=== PATIENT | female | born 1965 | race Caucasian/White ===

== ENCOUNTER → 2016-02-22 | Outpatient (CLI) | payer BC, OTHER ==
[2016-02-22 11:23] LABS: CH 32.6; HCT 41.3 % (34.0-46.0); HDW 2.55; HGB 14.1 gm/dL (11.4-16.0); MCHC 34.2 g/dL (31.0-37.0); MCV 96.6 fL (80.0-100.0); Mean Platelet Volume 6.3; RBC 4.27 m/uL (3.80-5.40); RDW 13.6 % (11.5-15.5); WBC 7.1 k/uL (3.8-10.6)
[2016-02-22 11:29] LABS: Appearance,Urine Clear (Clear); Bilirubin,Urine Negative (Negative); Glucose,Urine (UA) Negative (Negative); Ketones,Urine Negative (Negative); Leukocyte Esterase,Urine Negative (Negative); Mucus,Urine Rare /hpf; Nitrite,Urine Negative (Negative); PH, Urine 5.5 (5.0-8.0); Particle Count 2768; Protein,Urine Negative (Negative); RBC,Urine <1 /hpf (0-5); Specific Gravity,Urine 1.021 (1.001-1.035); Squamous Epithelial Cell,Urine 9 /hpf (0-4); UA Billing (MACRO vs. MICRO) MICRO; Urobilinogen,Urine <2.0 mg/dL (<2.0); WBC,Urine <1 /hpf (0-5)
[2016-02-22 11:37] LABS: ALT 37 U/L (9-52); AST 23 U/L (14-36); Alkaline Phosphatase 95 U/L (38-126); Anion Gap 15 mmol/L; Blood Urea Nitrogen 20 mg/dL (7-17); Calcium 9.5 mg/dL (8.4-10.2); Carbon Dioxide 24 mmol/L (22-30); Chloride 106 mmol/L (98-107); Glucose 109 mg/dL (74-99); Non-African American GFR(MDRD) >60 (>60 ml/min/1.73 sqM); Potassium 4.6 mmol/L (3.5-5.1); Sodium 145 mmol/L (137-145); Total Bilirubin 0.5 mg/dL (0.2-1.3); Total Protein 7.6 g/dL (6.3-8.2)
--- NOTE | 2016-02-22 13:04 | CT ---
EXAMINATION TYPE: CT abdomen pelvis w con DATE OF EXAM: 02/22/2016 12:54 PM COMPARISON: NONE INDICATION: Patient having severe stomach pain, complained that IV contrast gave her severe heartburn DLP: 721.9 mGycm, Automated exposure control for dose reduction was used. CONTRAST: 100 mL of Omnipaque 300. Study performed with Oral Contrast TECHNIQUE: Axial images were obtained from above the diaphragm to the pubic rami in the axial plane a t 5 mm thick sections. Reconstructed images are reviewed on the computer in the coronal plane. FINDINGS: Limited CT sections are obtained the lung bases. The lung bases are clear. Bilateral breast prosthe ses are present. CT ABDOMEN: Liver: Normal Spleen: Normal Pancreas: Normal Adrenal glands: The adrenal glands are normal. Gallbladder: Normal Kidneys: No masses are evident. No hydronephrosis is present. No cysts are present. Delayed images were obtained through the kidneys, which remain unremarkable. Aorta: Vascular calcification is within the aorta. Inferior vena cava: Normal. CT PELVIS: Loops of bowel within the abdomen and pelvis are normal. There are loops of bowel which are incom pletely distended or lack oral contrast limiting their evaluation. Appendix: Normal as visualized. Urinary bladder: Normal. Genitourinary structures: Uterus is atrophic. Left ovary may contain the 1.5 cm involuting cyst. Left adnexal regions unremarkable. Osseous structures: No suspicious lytic or sclerotic lesions. Pedicle screws are within the lower lum bar spine. IMPRESSIONS: 1. No acute abdominal process.
== END | disposition home or self-care (01) ==
LOC: RADCTMAIN 10:45
PROVIDERS: ATTEND Surgery
DX: R10.84 Generalized abdominal pain (principal)
CPT/HCPCS: 80053; 84443; 85027; 81001; 87086; 74177; 36415; Q9967

== ENCOUNTER → 2016-03-01 | Outpatient (CLI) | payer BC, OTHER ==
--- NOTE | 2016-03-01 20:50 | WWHP ---
DATE OF DICTATION: 03/01/2016 CHIEF COMPLAINT: The patient is here for her routine gynecologic exam. HISTORY OF PRESENT ILLNESS: This is a 50-year-old G5, P4-0-1-4 with an LMP of approximately 1999. The patient is status post PETRA for benign reasons. The patient states it has been about 6 years since her last pelvic exam, and previously saw Dr. Schwab for these. She has been seeing Dr. Amador regarding GI problems. She developed rectal bleeding in 08/04. She had a CT scan on 02/22/16 which showed a 1.5 cm left ovarian cyst. The CT scan of the abdomen and pelvis was otherwise unremarkable. She states she had some slight discomfort in the pelvis a couple of months ago, but this resolved. She continues to have GI problems, including diarrhea alternating with constipation and occasional blood per rectum. She is scheduled for colonoscopy on 03/16/16. She thinks she may have gone through menopausal change about 1 to 2 years ago when she did have some emotional changes and hot flashes, but this did resolve. PAST MEDICAL HISTORY: 1. Chronic neck and back pain. 2. History of cardiac arrhythmia. 3. She is status post cardiac ablation. MEDICATIONS: None. ALLERGIES: NO KNOWN DRUG ALLERGIES. PAST SURGICAL HISTORY: 1. Cardiac ablation in 1999. 2. Hysterectomy about 1999. 3. section in 1994. 4. Back fusion surgery in 2013. 5. Neck fusion surgery in 2014. 6. Colonoscopy in 2005. 7. Bilateral breast implants in 1999. PAST OB HISTORY: Three vaginal deliveries and one section for breech. She also had one spontaneous . 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 She did have a history of endometriosis and underwent a PETRA in 1999 for this. SOCIAL HISTORY: She denies tobacco and drug use and has about 12 alcoholic drinks per year. 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 FAMILY HISTORY: Mother had endometriosis and had colon cancer. Sister and brother have ulcerative colitis. Grandmother has diabetes. REVIEW OF SYSTEMS: She denies respiratory or cardiac problems. GI: She has had alternating constipation and diarrhea as well as blood per rectum as in the HPI. PHYSICAL EXAM: Blood pressure 127/79. Height 5 feet 3 inches. Weight 178 pounds. Temperature 96.1, pulse 73. This is a well-developed, well-nourished white female who is alert and oriented x3, in no acute distress. HEENT is within normal limits. NECK: Supple without mass or thyromegaly. CHEST AND LUNGS: Clear to auscultation. HEART: Regular rate and rhythm. Breasts are without mass or discharge and are consistent with bilateral breast implants. Axillary exam is negative for adenopathy. BACK: Negative for CVA tenderness. ABDOMEN: Soft, nontender, without palpable masses. PELVIC EXAM: Normal external genitalia. Vagina appears normal and well estrogenized. There is no evidence of prolapse. Bimanual exam is negative for mass or tenderness. Rectovaginal exam is negative for mass or tenderness and is negative for occult blood. EXTREMITIES: Nontender. IMPRESSION: 1. A 50-year-old female, status post PETRA for benign reasons. 2. Normal gynecologic exam. 3. Incidental finding of a left ovarian cyst measuring 1.[address] scan; this was described as an involuting cyst. This may be considered a normal physiologic cyst if she is premenopausal. 4. Gastrointestinal problems, including blood per rectum; currently undergoing workup for this. PLAN: 1. Pap smears have been discontinued. 2. Self breast examination was discussed. 3. Screening mammogram is scheduled for later this month, and a slip was given to the patient for this. 4. FSH will be drawn today. If this is consistent with menopause, consider ultrasound to recheck the ovarian cyst. If it is consistent with pre-menopause, no further workup on this would be necessary. 5. I have discussed the ovarian cyst with the patient and I have reassured the patient that it is likely not to be of significant concern. I have discussed the workup outlined above. 6. She will return in one year and p.r.n.
== END | disposition home or self-care (01) ==
LOC: WWCWWP 10:10
PROVIDERS: ATTEND Obstetrics & Gynecology
DX: N83.292 Other ovarian cyst, left side (principal)
CPT/HCPCS: 36415; 83001

== ENCOUNTER → 2016-03-03 | Outpatient (CLI) | payer BC, OTHER ==
--- NOTE | 2016-03-08 09:19 | MM ---
Reason for exam: screening (asymptomatic). Last mammogram was performed 5 years and 9 months ago. History: Retro-pectoral saline implants in both breasts, 1997. Took hormonal contraceptives for 2 years. Physical Findings: A clinical breast exam by your physician is recommended on an annual basis and results should be correlated with mammographic findings. MG Screening Mammo Implant/CAD Bilateral CC, MLO, and ID view(s) were taken. Prior study comparison: June 07, 2010, CAD bilateral diagnostic mammogram. May 22, 2007, bilateral diagnostic digital mammog. The breast tissue is extremely dense which could obscure a lesion on mammography. Bilateral breast implants. No significant changes when compared with prior studies. ASSESSMENT: Benign, BI-RAD 2 RECOMMENDATION: Routine screening mammogram of both breasts in 1 year.
== END | disposition home or self-care (01) ==
LOC: RADMAMWWP 12:41
PROVIDERS: ATTEND Surgery
DX: Z12.31 Encounter for screening mammogram for malignant neoplasm of breast (principal)

== ENCOUNTER → 2016-05-15 | Outpatient (CLI) | payer BC, OTHER ==
[2016-05-15 10:38] LABS: CH 33.4; CHCM 34.5; HCT 39.8 % (34.0-46.0); HDW 2.64; HGB 13.4 gm/dL (11.4-16.0); MCH 32.7 pg (25.0-35.0); MCHC 33.6 g/dL (31.0-37.0); MCV 97.5 fL (80.0-100.0); Mean Platelet Volume 7.6; RBC 4.09 m/uL (3.80-5.40); WBC 7.1 k/uL (3.8-10.6)
[2016-05-15 13:34] LABS: Erythrocyte Sedimentation Rate 5 mm/hr (0-20)
== END | disposition home or self-care (01) ==
LOC: LABWHC1 10:02
PROVIDERS: ATTEND Surgery
DX: K52.9 Noninfective gastroenteritis and colitis, unspecified (principal)
CPT/HCPCS: 36415; 85027; 85652; 86140

== ENCOUNTER → 2018-04-27 | Outpatient (CLI) | payer BC, OTHER ==
[2018-04-27 16:38] LABS: Albumin 4.4 g/dL (3.80-4.90); Albumin/Globulin Ratio 1.69 (1.60-3.17); Anion Gap 6.9 mmol/L (4.00-12.00); Calcium 9.9 mg/dL (8.7-10.3); Carbon Dioxide 25.1 mmol/L (21.6-31.8); Globulin 2.6 g/dL (1.6-3.3); LDL Cholesterol,Calculated 128.8 mg/dL (0.0-131.0); Potassium 4.9 mmol/L (3.5-5.5); Total Bilirubin 0.5 mg/dL (0.3-1.2); VLDL Calculation 19.2 mg/dL (5.00-40.00)
[2018-04-27 17:39] LABS: Hemoglobin A1C 5.2 % (4.0-6.0)
== END | disposition home or self-care (01) ==
LOC: LABWHC1 10:54
PROVIDERS: ATTEND Internal Medicine Endocrinology, Diabetes & Metabolism
DX: R73.03 Prediabetes (principal)
CPT/HCPCS: 36415; 80053; 80061; 83036; 84443

== ENCOUNTER → 2018-08-01 | Outpatient (CLI) | payer BC, OTHER ==
--- NOTE | 2018-08-02 07:54 | XR ---
EXAMINATION TYPE: XR cervical spine comp DATE OF EXAM: 08/01/2018 TECHNIQUE: Frontal, lateral, oblique, swimmers, and open mouth view of the cervical spine are obtaine d. HISTORY: [id number] CERVICALGIA,CDD COMPARISON: 11/17/2014 FINDINGS: The cervical spine is visualized in its entirety from C1 thru the top of T1 level, withou t evidence of acute fracture. Anterior cervical fusion device spans the C4-6 vertebral bodies. Very m inimal retrolisthesis of C3 on C4 is seen (2 mm). This is new from the prior of 11/17/2014 The pre-annalise tebral soft tissue appears within normal limits. The C1-C2 articulation is within normal limits on t he open mouth view. The oblique images are within normal limits. IMPRESSION: No acute fracture of the cervical spine. Postsurgical changes of the fourth through C6 w ith new very minimal retrolisthesis of C3 on C4 in comparison to the prior 2014.
== END | disposition home or self-care (01) ==
LOC: RADXRYALE 15:59
PROVIDERS: ATTEND Physician Assistant Medical
DX: M43.12 Spondylolisthesis, cervical region (principal); Z98.890 Other specified postprocedural states
CPT/HCPCS: 72050

== ENCOUNTER → 2019-01-01 | Outpatient (CLI) | payer BC, OTHER ==
[2019-01-01 08:57] VITALS: BP 133/89; PULSE 90; RESP 16; TEMP 98.1; BMI 29.2
--- NOTE | 2019-01-01 09:59 | P.HPOB ---
History of Present Illness H&P Date: 01/01/19 Chief Complaint: The patient is here for her routine gynecologic exam and ma mmogram. This is a 53-year-old 014 with an LMP of 1999. The patient is status post [facility] for benign reasons. The patient noticed a small axillary lump on the right side about 1 month ago. She states she no longer feels the lump, however, she has some right-sided breast tenderness near the axilla. She does have breast silicone implants Review of Systems The patient has lost about 13 pounds over the last 2 years. She denies respiratory or cardiac problems. GI: Occasional loose stool and constipation which she attributes to her ulcerative colitis. Past Medical History Past Medical History: Asthma Additional Past Medical History / Comment(s): back pain WHICH STARTED IN 2009. HX. HEART ARRYTHMIA (TACHY) NOW UNDER CONTROLL SINCE CARDIAC ABLATION. Ulcerative colitis and sgl-abmanhhn-cjif controlled. 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 History of endometriosis. History of Any Multi-Drug Resistant Organisms: None Reported Past Surgical History: Back Surgery, Breast Surgery, Cardiac Ablation, Section, Hysterectomy, Orthopedic Surgery Additional Past Surgical History / Comment(s): R KNEE ARTHROSCOPY. LUMBAR, 401, CERVICAL 2014. PETRA 1999.Colonoscopy 2017(2nd). Bilateral silicone breast impla nts 1999. 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 - Past Family History Father Family Medical History: No Reported History Mother Family Medical History: Cancer, Mitral Valve Prolapse (MVP) Additional Family Medical History / Comment(s): Colon cancer. Osteoporosis. Endometriosis. Brother(s) Additional Family Medical History / Comment(s): Ulcerative colitis. Sister(s) Additional Family Medical History / Comment(s): Ulcerative colitis. Medications and Allergies Home Medications Medication Instructions Recorded Confirmed Type Cholecalciferol [Vitamin D3] 5,000 unit PO DAILY 04/14/15 01/01/19 History Biotin 300 mcg PO DAILY 01/01/19 01/01/19 History Pyridoxine [Vitamin B-6] 50 mg PO ONCE 01/01/19 01/01/19 History Allergies Allergy/AdvReac Type Severity Reaction Status Date / Time hepatitis B virus vaccine Allergy Rash/Hives Verified 01/01/19 08:57 [Hepatitis B Virus Vaccine] influenza A (H1N1) virus Allergy Rash/Hives Verified 01/01/19 08:57 vaccine m- [From influenza A (H1N1)] adhesive AdvReac skin turns Verified 01/01/19 08:57 red Exam Vital Signs Temp Pulse Resp BP Pulse Ox 01/01/19 08:50 98.1 F 90 16 133/89 100 Intake and Output 12/31/18 01/01/19 01/01/19 22:59 06:59 14:59 Other: Weight 74.843 kg Height 5 feet 3 inches, weight 165 pounds, BMI 29.2. This is a well-developed well-nourished white female who is alert and oriented times 3 in no acute distress. HEENT: Within normal limits. NECK: Supple without mass or thyromegaly. CHEST AND LUNGS: Clear to auscultation. HEART: Regular rate and rhythm. BREASTS: Are without mass or discharge. Breasts are consistent with bilateral implants. There is mild right breast tenderness at the lateral aspect from 9:00 to 12:00. AXILLARY EXAM: Negative for adenopathy. BACK: Negative for CVA tenderness. ABDOMEN: Soft, nontender, without palpable masses. PELVIC EXAM: External genitalia appears normal. Vagina appears normal. There is no evidence of prolapse. Bimanual examination is negative for mass . There is mild to moderate right adnexal tenderness with deep bimanual palpation. There are no palpable masses. RECTAL EXAM: Rectovaginal exam is negative for mass or tenderness and is negative for occult blood. EXTREMITIES: Nontender. IMPRESSION: 1. 53-year-old female who is status post PETRA for benign reasons with mild to moderate right adnexal pelvic tenderness on bimanual examination. 2. Probable perimenopause. 3. One-month history of right breast tenderness. PLAN: 1. Pap smears have been discontinued. 2. Self breast awareness was discussed with the patient. 3. Diagnostic bilateral mammogram will be done today. 4. I have recommended a pelvic ultrasound because of the right adnexal pelvic tenderness. The order slip was given to the patient for this. 5. Osteoporosis prevention was discussed. I have stressed the importance of adequate calcium, vitamin D and regular exercise. Recommended amounts of calcium and vitamin D were also discussed. Because of her mother's history of osteoporosis we will plan on doing bone density testing at age 57 or after she has completed the menopausal change. 6. She states she is due for a colonoscopy since she was told to do one approximately 2 years after her one done in 2017. She will look into doing this and we'll discuss this with Dr. Price's office. 7. She was advised to return in one year for her annual well woman exam.
--- NOTE | 2019-01-01 11:37 | MM ---
Reason for exam: additional evaluation requested from prior study. Last mammogram was performed 2 years and 10 months ago. History: Retro-pectoral saline implants in both breasts, 1997. Took hormonal contraceptives for 2 years. Physical Findings: Dr. Hodges did breast exam. MG Diag Mamm Implants DARLENE w CAD Bilateral CC, MLO, and ID view(s) were taken. Prior study comparison: March 03, 2016, bilateral MG screening mammo implant/CAD. June 07, 2010, CAD bilateral diagnostic mammogram. The breast tissue is heterogeneously dense. This may lower the sensitivity of mammography. Bilateral retropectoral saline implants. 4cm central slightly lateral asymmetry is stable from 2017. These results were verbally communicated with the patient and result sheet given to the patient on 01/01/19. ASSESSMENT: Incomplete: need additional imaging evaluation, BI-RAD 0 RECOMMENDATION: Ultrasound of the right breast. (lateral)
--- NOTE | 2019-01-01 11:39 | USB ---
Reason for exam: additional evaluation requested from abnormal screening. History: Retro-pectoral saline implants in both breasts, 1997. Took hormonal contraceptives for 2 years. US Breast Limited RT Right limited breast ultrasound including focal area of concern, retroareolar and axilla demonstrates a 0.5 x 0.5 x 0.3cm oval, cystic lesion at 12 o'clock. Dense tissue corresponds to the mammographic asymmetry. These results were verbally communicated with the patient and result sheet given to the patient on 01/01/19. ASSESSMENT: Benign, BI-RAD 2 RECOMMENDATION: Routine screening mammogram of both breasts in 1 year.
== END | disposition home or self-care (01) ==
LOC: WWCWWP 08:45
PROVIDERS: ATTEND Obstetrics & Gynecology
DX: R92.8 Other abnormal and inconclusive findings on diagnostic imaging of breast (principal); N64.4 Mastodynia
CPT/HCPCS: 77066

== ENCOUNTER → 2019-01-10 | Outpatient (CLI) | payer BC, OTHER ==
--- NOTE | 2019-01-10 13:16 | US ---
EXAMINATION TYPE: US pelvis complete transvag DATE OF EXAM: 01/10/2019 COMPARISON: NONE CLINICAL HISTORY: R68.89 pelvic pain. RLQ pain during pelvic exam, hysterectomy - partial TECHNIQUE: Transvaginal (TV) and Transabdominal (TA) . Transabdominal sonographic images of the pel vis were acquired. Transvaginal sonographic images were medically necessary to better assess the fol lowing anatomy: ovaries Date of LMP: unknown EXAM MEASUREMENTS: Uterus: Surgically absent Endometrial Stripe: Surgically absent Right Ovary: 2.3 x 1.0 x 2.4 cm Left Ovary: 3.9 x 2.2 x 3.2cm 1. Uterus: Surgically absent, vaginal cuff = 1.2cm 2. Endometrium: Surgically absent 3. Right Ovary: dominant follicle = 1.3cm 4. Left Ovary: cystic area = 2.8 x 1.7 x 2.3cm 5. Bilateral Adnexa: appears wnl IMPRESSION: Bilateral ovarian cysts noted which may be functional in nature. Consider follow-up study in 6 weeks. The uterus is surgically absent.
== END | disposition home or self-care (01) ==
LOC: RADUSWWP 12:08
PROVIDERS: ATTEND Obstetrics & Gynecology
DX: N83.202 Unspecified ovarian cyst, left side (principal); N83.201 Unspecified ovarian cyst, right side; Z90.710 Acquired absence of both cervix and uterus
CPT/HCPCS: 76830; 76856

== ENCOUNTER → 2019-07-18 | Outpatient (CLI) | payer BC, OTHER | END | disposition home or self-care (01) | LOC: LABWHC1 12:47 | PROVIDERS: ATTEND Internal Medicine Clinical Cardiac Electrophysiology | DX: Z11.59 Encounter for screening for other viral diseases (principal) ==

== ENCOUNTER 2019-07-22 07:22 | Day surgery (SDC) | payer BC, OTHER ==
[2019-07-21 08:44] VITALS: BMI 29.5
[~2019-07-22 07:22] MED LIST: LACTATED RINGERS 1,000 ML IV SCH; SODIUM CHLORIDE 0.9% 1,000 ML IV SCH
[2019-07-22 07:52] LABS: Basophils # (A) 0.1 k/uL (0-0.2); Basophils % (A) 1 %; Eosinophils # (A) 0.4 k/uL (0-0.7); Eosinophils % (A) 4 %; HCT 44.1 % (34.0-46.0); HGB 14.7 gm/dL (11.4-16.0); Lymphocytes # (A) 2.1 k/uL (1.0-4.8); Lymphocytes % (A) 24 %; MCH 33.6 pg (25.0-35.0); MCHC 33.4 g/dL (31.0-37.0); MCV 100.5 fL (80.0-100.0); Mean Platelet Volume 7.4; Monocytes # (A) 0.5 k/uL (0-1.0); Monocytes % (A) 5 %; Neutrophils # (A) 5.7 k/uL (1.3-7.7); Neutrophils % (A) 64 %; Platelet Count 338 k/uL (150-450); RBC 4.38 m/uL (3.80-5.40); RDW 12.8 % (11.5-15.5); WBC 8.9 k/uL (3.8-10.6)
[2019-07-22 08:05] LABS: African American GFR (CKD) >90 (>60 ml/min/1.73 sqM); Anion Gap 7 mmol/L; Blood Urea Nitrogen 17 mg/dL (7-17); Calcium 9.4 mg/dL (8.4-10.2); Carbon Dioxide 24 mmol/L (22-30); Chloride 106 mmol/L (98-107); Glucose 99 mg/dL (74-99); Non-African American GFR(CKD) >90 (>60 ml/min/1.73 sqM); Potassium 4.2 mmol/L (3.5-5.1); Sodium 137 mmol/L (137-145)
[2019-07-22] MEDS ORDERED: fentaNYL (PF) 50 MCG/ML 2 ML AMP ONE (08:35)
[2019-07-22] MEDS ORDERED: ISOPROTERENOL 250 MCG/1.25 ML SYR IV ONE (08:35)
[2019-07-22] MEDS ORDERED: PROPOFOL 10 MG/ML 20 ML VIAL IV ONE (08:35)
[2019-07-22] MEDS ORDERED: MIDAZOLAM 2 MG/2 ML VIAL ONE (08:35)
[2019-07-22] MEDS ORDERED: LIDOCAINE 1% INJ 10MG/ML (20 ML MDV) SQ ONE (09:24)
[2019-07-22] MEDS ORDERED: ACETAMINOPHEN TAB 325 MG TAB PO PRN (13:07)
[2019-07-22] MEDS ORDERED: HYDROcodone/APAP 5-325MG 1 EACH TAB PO PRN (13:07)
--- NOTE | 2019-07-22 13:13 | P.PRLE ---
RE: Renita Dumont Dear Dr. Albert Maravilla underwent a diagnostic EP study for symptomatic runs of nonsustained ventricular tachycardia. Despite of a detailed EP study was on and off high- dose Isuprel as well as in the week. As well as a deep sedated state, no sustained VT couldn't be induced. Very occasional ventricular couplets and triplets were induced At this time I would not recommend any ablation But she is clearly symptomatic because she does feel these episodes come on randomly a few times a week I would add flecainide 25 mg twice daily, very low dose along with verapamil 40 mg twice daily and hopefully most of her episodes become minimally symptomatic and reasonably well suppressed Thank you for entrusting me with the care of the patient Warm regards Sincerely Last Javier
[2019-07-22] MEDS ORDERED: ACETAMINOPHEN IV (For NPO) 1,000 MG in EMPTY BAG 1 BAG IVPB ONE (13:30)
[2019-07-22] MEDS: FLECAINIDE 50 MG TAB PO SCH ×2 (14:10→20:35)
[2019-07-22] MEDS: VERAPAMIL 40 MG TAB PO SCH ×2 (14:10→20:35)
--- NOTE | 2019-07-22 17:26 | P.HPCAR ---
History of Present Illness This is Dr. Javier dictating an H/P on this patient The patient was interviewed and examined IMPRESSION / ASSESSMENT: Recurrent palpitations Documented nonsustained ventricular tachycardia of 2 different morphologies Continues to have palpitations despite verapamil Normal 2-D echo, structurally normal heart 2+ mitral regurgitation Stress echo reveals a mild hypertensive response to exercise, no stress-induced ischemia No exercise-induced ventricle and tachycardia PLAN: Received a diagnostic EP study during awake. As well as during deep sedation Both on and off Isuprel as well as during Isuprel washout HPI Patient continues to complain of palpitations despite verapamil reviewed these episodes maybe cardiomyopathy the middle of the night with racing heart, several times a week No loss of consciousness when she has noted at least a 50% improvement with verapamil but she continues to have breakthrough episodes ROS: No fever chills or rigors, no cough, phlegm or expectoration, no nausea, vomiting or diarrhea, no hematuria, dysuria, no musculoskeletal complaints, no strokes or seizures, no skin lesions. EXAMINATION: 112/61 mmHg, pulse rate in the 70s Afebrile Breath sounds are clear no rhonchi no crackles Heart sounds are normal Abdomen is soft Next 70s warm No JVD REVIEW OF LABS, ECG & MEDICAL DATA Hemoglobin 14.7, sodium 137 potassium 4.2 BUN 17 creatinine 0.55 Physical Exam Vitals: Vital Signs Temp Pulse Pulse Resp BP Pulse Ox 07/22/19 15:52 80 18 102/61 07/22/19 14:52 75 20 102/64 07/22/19 14:22 76 18 105/63 07/22/19 13:52 77 112/61 98 07/22/19 13:37 97.0 F L 77 18 107/60 97 07/22/19 13:27 97.3 F L 68 18 102/65 98 07/22/19 13:10 76 18 106/66 98 07/22/19 12:40 78 18 104/63 98 07/22/19 12:25 66 18 108/64 98 07/22/19 12:10 75 18 104/67 99 07/22/19 11:55 85 18 106/59 98 07/22/19 07:47 98.1 F 77 18 121/73 96 Intake and Output 07/22/19 07/22/19 07/22/19 06:59 14:59 22:59 Intake Total 700 Output Total 300 Balance 400 Intake: IV 700 Output: Urine 300 Other: # Voids 1 Weight 75.75 kg Past Medical History Past Medical History: Asthma, Diabetes Mellitus, Hyperlipidemia, Pneumonia Additional Past Medical History / Comment(s): hx migraines, mild Ulcerative colitis, "pre-diabetic"-diet controlled. See Dr Javier H&P History of Any Multi-Drug Resistant Organisms: None Reported Past Surgical History: Back Surgery, Breast Surgery, Cardiac Ablation, Section, Hysterectomy, Orthopedic Surgery Additional Past Surgical History / Comment(s): Bilateral silicone breast implants, left ankle surgery age 8, lower back surgery, neck surgery, Past Anesthesia/Blood Transfusion Reactions: Motion Sickness, Postoperative Nausea & Vomiting (PONV) Past Psychological History: No Psychological Hx Reported Smoking Status: Never smoker Past Alcohol Use History: Occasional Past Drug Use History: None Reported - Past Family History Father Family Medical History: No Reported History Mother Family Medical History: No Reported History Additional Family Medical History / Comment(s): Colon cancer. Osteoporosis. Endometriosis. Brother(s) Additional Family Medical History / Comment(s): Ulcerative colitis. Sister(s) Additional Family Medical History / Comment(s): Ulcerative colitis. Physical Examination Vital Signs Temp Pulse Pulse Resp BP Pulse Ox 07/22/19 15:52 80 18 102/61 07/22/19 14:52 75 20 102/64 07/22/19 14:22 76 18 105/63 07/22/19 13:52 77 112/61 98 07/22/19 13:37 97.0 F L 77 18 107/60 97 07/22/19 13:27 97.3 F L 68 18 102/65 98 07/22/19 13:10 76 18 106/66 98 07/22/19 12:40 78 18 104/63 98 07/22/19 12:25 66 18 108/64 98 07/22/19 12:10 75 18 104/67 99 07/22/19 11:55 85 18 106/59 98 07/22/19 07:47 98.1 F 77 18 121/73 96 Intake and Output 07/22/19 07/22/19 07/22/19 06:59 14:59 22:59 Intake Total 700 Output Total 300 Balance 400 Intake: IV 700 Output: Urine 300 Other: # Voids 1 Weight 75.75 kg Results 07/22/19 07:45 07/22/19 07:45 CBC 07/22/19 Range/Units 07:45 WBC 8.9 (3.8-10.6) k/uL RBC 4.38 (3.80-5.40) m/uL Hgb 14.7 (11.4-16.0) gm/dL Hct 44.1 (34.0-46.0) % Plt Count 338 (150-450) k/uL Comprehensive Metabolic Panel 07/22/19 Range/Units 07:45 Sodium 137 (137-145) mmol/L Potassium 4.2 (3.5-5.1) mmol/L Chloride 106 (98-107) mmol/L Carbon Dioxide 24 (22-30) mmol/L BUN 17 (7-17) mg/dL Creatinine 0.55 (0.52-1.04) mg/dL Glucose 99 (74-99) mg/dL Calcium 9.4 (8.4-10.2) mg/dL Current Medications Generic Name Dose Route Start Last Admin Trade Name Julianq PRN Reason Stop Dose Admin Acetaminophen 650 mg 07/22/19 13:07 Tylenol Tab PO Q6HR PRN Mild Pain Hydrocodone Bitart/Acetaminophen 1 each 07/22/19 13:07 [place] 5-325 PO Q4HR PRN Moderate Pain Flecainide Acetate 25 mg 07/22/19 12:45 07/22/19 14:10 Tambocor PO 25 mg Q12HR MIHAI Administration Sodium Chloride 12 ml 07/22/19 21:00 Saline Flush IV Q12HR MIHAI Verapamil HCl 40 mg 07/22/19 12:45 07/22/19 14:10 Isoptin PO 40 mg BID MIHAI Administration Intake and Output 07/22/19 07/22/19 07/22/19 06:59 14:59 22:59 Intake Total 700 Output Total 300 Balance 400 Intake: IV 700 Output: Urine 300 Other: # Voids 1 Weight 75.75 kg Patient Weight 07/23/19 06:59 Weight 75.75 kg 07/22/19 07:45 07/22/19 07:45
--- NOTE | 2019-07-22 17:53 | PCN ---
PROCEDURE NOTE This patient is a 54-year-old female with a history of nonsustained ventricular tachycardia, symptomatic despite verapamil. Patient was brought to the EP lab in a fasting state. Written informed consent was obtained prior to the procedure. The right groin was prepped and draped as per protocol and 3 venous sheaths were placed in the right femoral vein. Via these, diagnostic and mapping and ablation catheters were placed in the high right atrium, His bundle area, RV and coronary sinus. Sinus cycle length 775 milliseconds, MA interval 155 milliseconds, QRS 74 milliseconds, QT 384 milliseconds. AH interval 116 milliseconds, HV interval 41 milliseconds. Sinus node recovery times at 600, 500 and 400 milliseconds were 1248, 1159 and 1072 milliseconds. Corresponding corrected sinus node recovery times were within normal limits. AV node Wenckebach block 310 milliseconds. VA Wenckebach block greater than 700 milliseconds. Pacing maneuvers were performed from the coronary sinus. Atrial extrastimulation was performed in AV node ERP 500/310 milliseconds. High right atrial pacing was performed. Ventricular stimulation was performed. Ventricular stimulation was performed from the RV from two sites with two different drive trains off Isuprel, on high-dose Isuprel and during washout. Burst stimulation from each site. Ventricular extrastimulation up to triple extrastimuli from each site. Long-short sequences up to double extrastimuli from each site. No sustained arrhythmias were induced. Very occasional LV PVCs and ventricular couplets were noted during extrastimulation. Burst stimulation and extrastimulation were performed from the RV apex, from the RV septum during an unsedated wakeful state. We repeated this in a deep sedated state. This was repeated during Isuprel washout. No inducible ventricular tachycardia. No inducible SVT, either. There was no evidence of slow pathway conduction or accessory pathway conduction. RESULT: Diagnostic EP study revealing normal sinus node function, normal AV node function, no evidence of slow pathway conduction, and no inducible ventricular tachycardia despite a very detailed electrophysiologic assessment. PLAN: Start flecainide and verapamil for suppression of nonsustained VT that has been clinically documented. MMODL / IJN: [id number] /
[2019-07-23] MEDS: VERAPAMIL 40 MG TAB PO SCH (07:46)
[2019-07-23] MEDS: FLECAINIDE 50 MG TAB PO SCH (07:46)
[2019-07-23 08:22] VITALS: PULSE 77; RESP 16
[2019-07-23 09:14] VITALS: BP 116/72; TEMP 97.6
--- NOTE | 2019-07-23 10:35 | P.DS ---
Providers Attending physician: Last Javier Primary care physician: [facility] Course: This is a pleasant 54-year-old female who was brought in for an elective EP study secondary to non-sustained ventricular tachycardia. Her VT was no inducible. She was having breakthrough episodes of verapamil alone. Flecanide was added yesterday. She is seen and examined sitting up in bed in no acute distress. She has been up and ambulating around her room without incident. She has no bleeding, oozing or pain at the right groin access site. She denies symptoms of chest pain, shortness of breath, dizziness or palpitations. Telemetry tracing unremarkable. Blood pressure 116/72 heart rate 75 afebrile and maintaining oxygen saturations on room air. Currently maintained on verapamil 40 mg BID and flecanide 25 mg BID. GENERAL: Well-appearing, well-nourished and in no acute distress. NECK: Supple without JVD or thyromegaly. LUNGS: Breath sounds clear to auscultation bilaterally. Respiration equal and unlabored. No wheezes, rales or rhonchi. HEART: Regular rate and rhythm without murmurs, rubs or gallops. S1 and S2 heard. EXTREMITIES: Normal range of motion, no edema. No clubbing or cyanosis. Peripheral pulses intact. Right femoral access site clean, dry and intact with NO bleeding, oozing or hematoma. ASSESSMENT Breakthrough non-sustained ventricular tachycardia s/p EP study. PLAN VT was non-inducible. Continue verapamil and flecanide as ordered. Follow up in the office with Dr. Javier in 1-week. Nurse Practitioner note has been reviewed, I agree with a documented findings and plan of care. Patient was seen and examined. Plan - Discharge Summary Discharge Rx Participant: Yes New Discharge Prescriptions: New Flecainide [Tambocor] 25 mg PO Q12HR #180 tablet Continue Ascorbic Acid [Vitamin C] 500 mg PO DAILY Verapamil HCl 40 mg PO BID #180 tab Discharge Medication List Ascorbic Acid [Vitamin C] 500 mg PO DAILY 07/21/19 [History] Flecainide [Tambocor] 25 mg PO Q12HR #180 tablet 07/22/19 [Rx] Verapamil HCl 40 mg PO BID #180 tab 07/23/19 [Rx] Follow up Appointment(s)/Referral(s): Last Javier MD [STAFF PHYSICIAN] - 07/29/19 1:45 am (Groin check within one week, my team Follow-up with Dr. Javier again in about 2-3 months Follow up appointment made with DR. Javier on Oct.16 @ 2:45pm.) Patient Instructions/Handouts: Electrophysiology Study (DC) Activity/Diet/Wound Care/Special Instructions: Post EP study - Ablation instructions 1. Keep access sites dry for 2 days. 2. No heavy lifting or straining for 2 days. 3. Avoid bending the hips repeatedly for 2 days. 4. You may go up and down stairs slowly Call if the following is noted 1. Bleeding, increasing swelling or pain at the access sites. 2. Increasing chest discomfort, especially upon taking a deep breath. 3. Increasing shortness of breath, at rest or with exertion. 4. Undue cough / phlegm 5. Difficulty or pain while swallowing. 6. Pain or change in color in the extremities. 7. Fever, chills, rigors. 8. Increasing headache or neurologic symptoms. 9. Dizziness, fainting, palpitations Flecainide 25 mg twice daily Verapamil 40 mg twice daily Discharge Disposition: HOME SELF-CARE
== END 2019-07-23 10:12 | disposition home or self-care (01) ==
LOC: CATHEP 07:22 → 1SOBS 13:11 → CATHEP 07-23 10:12
PROVIDERS: ATTEND Internal Medicine Clinical Cardiac Electrophysiology
DX: I47.2 Ventricular tachycardia (principal); J45.909 Unspecified asthma, uncomplicated; E78.5 Hyperlipidemia, unspecified; R73.03 Prediabetes; Z87.01 Personal history of pneumonia (recurrent); G43.909 Migraine, unspecified, not intractable, without status migrainosus; K51.90 Ulcerative colitis, unspecified, without complications; Z90.710 Acquired absence of both cervix and uterus; Z98.890 Other specified postprocedural states; Z80.0 Family history of malignant neoplasm of digestive organs; Z83.79 Family history of other diseases of the digestive system; Z82.62 Family history of osteoporosis; I34.0 Nonrheumatic mitral (valve) insufficiency; Z79.899 Other long term (current) drug therapy; Z88.7 Allergy status to serum and vaccine; Z91.09 Other allergy status, other than to drugs and biological substances
CPT/HCPCS: 93005; 93623; 93620; 80048; 85025; C1894; C1769 ×2; C1730 ×3; J2250; J2001; J3010; J2704

== ENCOUNTER → 2019-09-26 | Outpatient (CLI) | payer BC, OTHER ==
[2019-09-26 15:12] LABS: African American GFR (CKD) 115.5 (60.0-200.0); Albumin/Globulin Ratio 1.74 (1.60-3.17); Anion Gap 7.1 mmol/L (4.00-12.00); BUN/Creat Ratio 22.86 Ratio (12.00-20.00); Calcium 9.3 mg/dL (8.7-10.3); Carbon Dioxide 23.9 mmol/L (21.6-31.8); Chol/HDL Ratio 3.76; Globulin 2.3 g/dL (1.6-3.3); LDL Cholesterol,Calculated 100.2 mg/dL (0.0-131.0); Non-African American GFR(CKD) 99.6 (60.0-200.0); Potassium 4.2 mmol/L (3.5-5.5); Total Bilirubin 0.5 mg/dL (0.3-1.2); Total Protein 6.3 g/dL (6.2-8.2); VLDL Calculation 23.8 mg/dL (5.00-40.00)
[2019-09-26 17:39] LABS: Hemoglobin A1C 5.1 % (4.0-6.0)
== END | disposition home or self-care (01) ==
LOC: LABWHC1 08:21
PROVIDERS: ATTEND Internal Medicine Endocrinology, Diabetes & Metabolism
DX: E78.5 Hyperlipidemia, unspecified (principal); R73.03 Prediabetes
CPT/HCPCS: 36415; 80053; 80061; 83036; 84443

== ENCOUNTER 2019-12-09 06:45 | Emergency (ER) | payer BC, OTHER ==
[2019-12-09 06:54] VITALS: RESP 18
[2019-12-09] MEDS ORDERED: ACETAMINOPHEN TAB 500 MG TAB PO STA (07:07)
[2019-12-09] MEDS ORDERED: KETOROLAC 15 MG/ML 1 ML VIAL IM STA (07:10)
[2019-12-09] MEDS ORDERED: ORPHENADRINE 30 MG/ML 2 ML VIAL IM STA (07:10)
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
[2019-12-09 08:50] LABS: Basophils # (A) 0.1 k/uL (0-0.2); Basophils % (A) 2 %; Eosinophils # (A) 0.2 k/uL (0-0.7); Eosinophils % (A) 3 %; HCT 44.2 % (34.0-46.0); Lymphocytes # (A) 1.3 k/uL (1.0-4.8); Lymphocytes % (A) 25 %; MCH 34.6 pg (25.0-35.0); MCHC 33.8 g/dL (31.0-37.0); MCV 102.4 fL (80.0-100.0); Macrocytosis Slight; Mean Platelet Volume 7.2; Monocytes # (A) 0.4 k/uL (0-1.0); Monocytes % (A) 7 %; Neutrophils # (A) 3.2 k/uL (1.3-7.7); Neutrophils % (A) 61 %; Platelet Count 258 k/uL (150-450); RBC 4.32 m/uL (3.80-5.40); RDW 12.5 % (11.5-15.5); WBC 5.3 k/uL (3.8-10.6)
[2019-12-09 09:05] LABS: ALT 18 U/L (4-34); AST 43 U/L (14-36); African American GFR (CKD) >90 (>60 ml/min/1.73 sqM); Albumin 4.4 g/dL (3.5-5.0); Alkaline Phosphatase 62 U/L (38-126); Anion Gap 6 mmol/L; Blood Urea Nitrogen 11 mg/dL (7-17); Calcium 9.1 mg/dL (8.4-10.2); Carbon Dioxide 23 mmol/L (22-30); Chloride 108 mmol/L (98-107); Glucose 104 mg/dL (74-99); Non-African American GFR(CKD) >90 (>60 ml/min/1.73 sqM); Sodium 137 mmol/L (137-145); Total Bilirubin 1.4 mg/dL (0.2-1.3); Total Protein 7.6 g/dL (6.3-8.2)
[2019-12-09 09:14] LABS: Potassium 5.4 mmol/L (3.5-5.1)
--- NOTE | 2019-12-09 09:26 | CT ---
EXAMINATION TYPE: CT chest angio for PE DATE OF EXAM: 12/09/2019 COMPARISON: NONE HISTORY: Abn CT-Thoracic Spine CT DLP: 283.4 mGycm. Automated Exposure Control for Dose Reduction was Utilized. CONTRAST: CTA scan of the thorax is performed with IV Contrast, patient injected with 70 mL of Isovue 370, pulm onary embolism protocol. MIP Images are created on CT scanner and reviewed. FINDINGS: LUNGS: Some respiratory motion artifact degradation. Lungs are grossly clear without suspicious focal consolidation or groundglass opacity. No concerning masses. No pleural effusion or pneumothorax. MEDIASTINUM: There is satisfactory enhancement of the pulmonary artery and its branches, there is no CT evidence for pulmonary embolism. Area of concern on noncontrast CT shows satisfactory contrast opa cification There are no greater than 1 cm hilar or mediastinal lymph nodes. No cardiomegaly or rosana cardial effusion is seen. OTHER: Partial visualization of surgical change in the lower lumbar spine on localizer. Bilateral sub pectoral breast implants noted. IMPRESSION: No CT evidence for acute pulmonary embolism. No suspicious acute pulmonary process.
[2019-12-09 09:31] LABS: Partial Thromboplastin Time 23.4 sec (22.0-30.0); Prothrombin Time 10.4 sec (9.0-12.0)
[2019-12-09 09:46] VITALS: BP 114/63; PULSE 78; TEMP 98.4
== END 2019-12-09 09:41 | disposition home or self-care (01) ==
LOC: EC 06:45
DX: M62.830 Muscle spasm of back (principal); Z88.7 Allergy status to serum and vaccine; Z91.048 Other nonmedicinal substance allergy status
CPT/HCPCS: 36415; 80053; 85025; 85610; 85730; 72128; 72125; 71275; 99284; 96372 ×2; J2360; J1885; Q9967

== ENCOUNTER → 2020-03-03 | Outpatient (CLI) | payer BC, OTHER ==
[2020-03-03 08:19] VITALS: BP 106/72; PULSE 77; RESP 16; TEMP 98.3
--- NOTE | 2020-03-03 09:14 | P.HPOB ---
History of Present Illness H&P Date: 03/03/20 Chief Complaint: The patient is here for her routine gynecologic exam. This is a 54-year-old 014 with an LMP of 1999. The patient is status post PETRA for benign reasons. She has a history of endometriosis and this was one of the reasons why she had a hysterectomy. She has had intermittent bilateral cysts and was noted to have bilateral small cysts on ultrasound done 01/10/2019. The largest cyst was 2.8 cm. FSH on 03/01/2016 was 6. She has been experiencing increasing pelvic pains that are intermittent about 2 times per month. They typically last approximately 1 hour they feel like bad cramps and can be up to an 8 out of 10 on the pain scale. Currently she denies any pain today. The pain can vary in location but she has felt it on both sides. They do not seem to be associated with the same time of each month and she has also noticed it when she is at complete rest. She wonders if the pains are related to ovarian cysts. She states it does not stop her from doing her normal activities and she has not needed to take medication for the pains. She has noticed these pains for several months but seems to have gotten worse recently. She denies hot flashes. Review of Systems The patient has lost 12 pounds over the last year. She denies respiratory, cardiac, or G.I. problems. Past Medical History Past Medical History: Asthma, Supraventricular Tachycardia (SVT) Additional Past Medical History / Comment(s): back pain WHICH STARTED IN 2009. HX. HEART ARRYTHMIA (TACHY). Currently being seen for some type of ventricular tachycardia. Ulcerative colitis and [id number] controlled. 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 History of endometriosis. History of Any Multi-Drug Resistant Organisms: None Reported Past Surgical History: Back Surgery, Breast Surgery, Cardiac Ablation, Section, Hysterectomy, Orthopedic Surgery Additional Past Surgical History / Comment(s): R KNEE ARTHROSCOPY. LUMBAR, 401, CERVICAL 2014. PETRA 1999.Colonoscopy 2017(2nd). Bilateral silicone breast implants 1999. 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 - Past Family History Father Family Medical History: No Reported History Mother Family Medical History: No Reported History Additional Family Medical History / Comment(s): Colon cancer. Osteoporosis. Endometriosis. Brother(s) Additional Family Medical History / Comment(s): Ulcerative colitis. Sister(s) Additional Family Medical History / Comment(s): Ulcerative colitis. Medications and Allergies Home Medications Medication Instructions Recorded Confirmed Type Verapamil HCl 40 mg PO BID #180 tab 07/23/19 03/03/20 Rx Naltrexone HCl/Bupropion HCl 1 tab PO DAILY 12/09/19 03/03/20 History [Contrave ER 8-90 mg Tablet] Flecainide [Tambocor] 25 mg PO BID 03/03/20 03/03/20 History Allergies Allergy/AdvReac Type Severity Reaction Status Date / Time hepatitis B virus vaccine Allergy Rash/Hives Verified 03/03/20 08:13 [Hepatitis B Virus Vaccine] adhesive AdvReac skin turns Verified 03/03/20 08:13 red Exam Vital Signs Temp Pulse Resp BP Pulse Ox 03/03/20 08:15 98.3 F 77 16 106/72 99 Intake and Output 03/02/20 03/03/20 03/03/20 22:59 06:59 14:59 Other: Weight 69.4 kg Height 5 feet 3 inches, weight 153 pounds, BMI 27.1. This is a well-developed well-nourished white female who is alert and oriented times 3 in no acute distress. HEENT: Within normal limits. NECK: Supple without mass or thyromegaly. CHEST AND LUNGS: Clear to auscultation. HEART: Regular rate and rhythm. BREASTS: Are without mass or discharge. Breasts are consistent with bilateral implants. AXILLARY EXAM: Negative for adenopathy. BACK: Negative for CVA tenderness. ABDOMEN: Soft, nontender, without palpable masses. PELVIC EXAM: External genitalia appears normal with no significant atrophy. Vagina appears normal with no significant atrophy. There is no evidence of prolapse. Bimanual examination is negative for mass but there is mild right adnexal tenderness with deep bimanual palpation. There is no left adnexal tenderness. RECTAL EXAM: Rectovaginal exam is negative for mass or tenderness and is negative for occult blood. EXTREMITIES: Nontender. IMPRESSION: 1. 54-year-old perimenopausal female who is status post PETRA for benign reasons with intermittent variable pelvic pains. Differential diagnosis will include ovarian cyst, ruptured ovarian cyst, endometriosis, and less likely, non- gynecologic pain. 2. History of osteopenia. PLAN: 1. Pap smears have been discontinued. 2. Self breast awareness was discussed with the patient. 3. Screening mammogram is scheduled for 03/04/2020. The order slip was given to the patient for this. 4. Pelvic ultrasound was recommended and the order slip was given to the patient for this. 5. FSH blood tests will be drawn. The order slip was given to the patient for this. 6.Osteoporosis prevention was discussed. I have stressed the importance of adequate calcium, vitamin D and regular exercise. Recommended amounts of calcium and vitamin D were also discussed. We will plan on repeating bone density testing after she is considered menopausal. 7. If her pains are related to ovarian cysts or possibly endometriosis, we have discussed possible options including suppression of cysts with oral contraceptives, surgical removal of ovarian cysts or ovaries, and conservative management with NSAID medications. The patient states she has not required medications at this point. 8. She was advised to return in one year for her annual well woman exam and as needed.
[2020-03-03 17:27] LABS: Follicle Stimulating Hormone 20.1 mIU/mL
== END | disposition home or self-care (01) ==
LOC: WWCWWP 08:02
PROVIDERS: ATTEND Obstetrics & Gynecology
DX: N92.4 Excessive bleeding in the premenopausal period (principal); N91.2 Amenorrhea, unspecified; R10.2 Pelvic and perineal pain; N83.209 Unspecified ovarian cyst, unspecified side
CPT/HCPCS: 82670; 83001

== ENCOUNTER → 2020-03-04 | Outpatient (CLI) | payer BC, OTHER ==
--- NOTE | 2020-03-05 06:53 | US ---
EXAMINATION TYPE: US pelvic complete DATE OF EXAM: 03/04/2020 COMPARISON: US January 10, 2019. CT abdomen and pelvis February 22, 2016 CLINICAL HISTORY: R10.2 PELVIC PAIN, R68.89 R PELVIC TENDERNESS. Pelvic pain, F/U previous TECHNIQUE: Transabdominal (TA). Transabdominal sonographic images of the pelvis were acquired. Date of LMP: 1994 EXAM MEASUREMENTS: Right Ovary: 2.4 x 1.4 x 3.1 cm Left Ovary: 2.5 x 2.3 x 2.0 cm 1. Uterus: Surgically absent 2. Endometrium: Surgically absent 3. Right Ovary: Dominant follicle= 1.5 cm 4. Left Ovary: Dominant follicle= 1.4 cm 5. Bilateral Adnexa: wnl 6. Posterior cul-de-sac: wnl Posthysterectomy changes redemonstrated. Bladder appears unremarkable. Small symmetric appearing ovar ies with small peripheral follicle or more likely simple-appearing thin-walled cyst bilaterally is no [place]. IMPRESSION: Single inconsequential benign simple cysts in both ovaries up to 1.5 cm in size in the ri ght ovary.
--- NOTE | 2020-03-05 10:16 | MM ---
Reason for exam: screening (asymptomatic). Last mammogram was performed 1 year and 2 months ago. History: Retro-pectoral saline implants in both breasts, 1998. Took hormonal contraceptives for 2 years. Physical Findings: A clinical breast exam by your physician is recommended on an annual basis and results should be correlated with mammographic findings. MG 3D Screen Mammo Imp/Cad Bilateral CC, MLO, and ID view(s) were taken. Prior study comparison: January 01, 2019, bilateral MG diag mamm implants DARLENE w CAD. March 03, 2016, bilateral MG screening mammo implant/CAD. The breast tissue is heterogeneously dense. This may lower the sensitivity of mammography. There are benign appearing round calcifications bilaterally. Bilateral subpectoral implants demonstrated. ASSESSMENT: Benign, BI-RAD 2 RECOMMENDATION: Routine screening mammogram of both breasts in 1 year.
--- NOTE | 2020-03-09 15:22 | P.PN ---
Progress Note - Text Progress Note Date: 03/09/20 OUTPATIENT FOLLOW-UP NOTE TEST(S)/RESULTS: Test results from 03/03/2020 include FSH of 20.1. 03/04/2020 test results include mammogram which was benign and pelvic ultrasound showing bilateral simple ovarian cyst measuring 1.5 cm and 1.4 cm in the right and left ovaries respectively. METHOD OF NOTIFICATION: The patient was notified by phone. PATIENT COMMENTS: She still has experienced intermittent pelvic pains including some pain yesterday. DIAGNOSIS: Intermittent pelvic pains with small probable functional ovarian cysts measuring 1.5 and 1.4 cm. The FSH is consistent with the perimenopause. DISCUSSION: She states she has not needed any pain medication for the pains that she has experienced. I have recommended that she keep a symptom calendar to see if there is any pattern. She was instructed to make an appointment for reevaluation if pains are getting much worse. PLAN: She was advised to return in one year for her annual well woman exam and as needed.
== END | disposition home or self-care (01) ==
LOC: RADMAMWWP 13:43
PROVIDERS: ATTEND Obstetrics & Gynecology
DX: Z12.31 Encounter for screening mammogram for malignant neoplasm of breast (principal); N83.291 Other ovarian cyst, right side; N83.292 Other ovarian cyst, left side; R10.2 Pelvic and perineal pain; R68.89 Other general symptoms and signs
CPT/HCPCS: 76856; 77063; 77067

== ENCOUNTER 2020-07-02 02:15 | Emergency (ER) | payer BC, OTHER ==
[2020-07-02 02:23] VITALS: TEMP 98.5
[2020-07-02] MEDS ORDERED: KETOROLAC 15 MG/ML 1 ML VIAL IM STA (02:29)
--- NOTE | 2020-07-02 02:47 | ED ---
General Adult HPI - General Chief complaint: Extremity Injury, Upper Stated complaint: LT finger injury Time Seen by Provider: 07/02/20 02:25 Source: patient, RN notes reviewed Mode of arrival: ambulatory Limitations: no limitations - History of Present Illness Initial comments: 54-year-old female presents to the emergency room for a chief complaint of left third digit pain. Patient states that earlier today she was trying to vegetable picker a large rock and she could not hold it due to its weight. States it fell onto the tip of her left third digit. Patient states it is swollen and won't stop throbbing. States it is keeping her awake and she was not sure what to do to make it feel better. Patient states she is not sure if she has too much blood under the nail.Patient has no other complaints at this time including shortness of breath, chest pain, abdominal pain, nausea or vomiting, headache, or visual changes. - Related Data Home Medications Medication Instructions Recorded Confirmed Naltrexone HCl/Bupropion HCl 1 tab PO DAILY 12/09/19 03/03/20 [Contrave ER 8-90 mg Tablet] Flecainide [Tambocor] 25 mg PO BID 03/03/20 03/03/20 Previous Rx's Medication Instructions Recorded Verapamil HCl 40 mg PO BID #180 tab 07/23/19 Allergies Allergy/AdvReac Type Severity Reaction Status Date / Time hepatitis B virus vaccine Allergy Rash/Hives Verified 07/02/20 02:23 [Hepatitis B Virus Vaccine] adhesive AdvReac skin turns Verified 07/02/20 02:23 red Review of Systems ROS Statement: Those systems with pertinent positive or pertinent negative responses have been documented in the HPI. ROS Other: All systems not noted in ROS Statement are negative. Past Medical History Past Medical History: Asthma, Supraventricular Tachycardia (SVT) Additional Past Medical History / Comment(s): back pain WHICH STARTED IN 2009. HX. HEART ARRYTHMIA (TACHY). Currently being seen for some type of ventricular tachycardia. Ulcerative colitis and zet-[id number] controlled. 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 History of endometriosis. History of Any Multi-Drug Resistant Organisms: None Reported Past Surgical History: Back Surgery, Breast Surgery, Cardiac Ablation, Section, Hysterectomy, Orthopedic Surgery Additional Past Surgical History / Comment(s): R KNEE ARTHROSCOPY. LUMBAR, 401, CERVICAL 2014. PETRA 2000.Colonoscopy 2017(2nd). Bilateral silicone breast implants 2000. Past Anesthesia/Blood Transfusion Reactions: No Reported Reaction Past Psychological History: No Psychological Hx Reported Smoking Status: Never smoker Past Alcohol Use History: Rare Past Drug Use History: None Reported - Past Family History Father Family Medical History: No Reported History Mother Family Medical History: No Reported History Additional Family Medical History / Comment(s): Colon cancer. Osteoporosis. Endometriosis. Brother(s) Additional Family Medical History / Comment(s): Ulcerative colitis. Sister(s) Additional Family Medical History / Comment(s): Ulcerative colitis. General Exam Limitations: no limitations General appearance: alert, in no apparent distress Head exam: Present: atraumatic, normocephalic, normal inspection Eye exam: Present: normal appearance, PERRL, EOMI. Absent: scleral icterus, conjunctival injection, periorbital swelling ENT exam: Present: normal exam, mucous membranes moist Neck exam: Present: normal inspection. Absent: tenderness Cardiovascular Exam: Absent: systolic murmur, diastolic murmur, rubs, gallop, clicks Extremities exam: Present: full ROM (full ROM of the left hand), normal capillary refill (cap refill less than 2 seconds left third digit.), joint swelling (mild edema of distal phalanx left third digit), other (subungual hematoma about 50% of left third nail bed) Neurological exam: Present: alert, oriented X3 Course Vital Signs 07/02/20 02:20 Temperature 98.5 F Pulse Rate 69 Respiratory 18 Rate Blood Pressure 143/76 O2 Sat by Pulse 99 Oximetry Procedures - Procedures Initial comment: Cautery pen was used to trephinate the nail of the left third finger. No complications. Blood expelled. Medical Decision Making - Medical Decision Making Patient presents a subungual hematoma of the left third fingernail covering about 50% of the nailbed. X-ray showed no acute fracture. Cautery pen was used to create a hole in the nail. Blood was expelled. Patient did have significant improvement in symptoms. Patient will be discharged home to follow up with primary care. She'll return here for any worsening symptoms. Disposition Clinical Impression: Subungual hematoma of fingernail Disposition: HOME SELF-CARE Condition: Good Instructions (If sedation given, give patient instructions): Subungual Hematoma (ED) Additional Instructions: Please rest ice and elevate. Take Motrin and Tylenol for pain. Follow-up with your doctor in one to 2 days. Return to the emergency room for any worsening symptoms. Is patient prescribed a controlled substance at d/c from ED?: No Referrals: Amado Price DO [Primary Care Provider] - 1-2 days Time of Disposition: 03:18
--- NOTE | 2020-07-02 02:54 | XR ---
EXAM: XR Left Fingers, 2 or More Views CLINICAL HISTORY: ITS.REASON XR Reason: 3rd digit Bruising on tip of finger from injury TECHNIQUE: Frontal, lateral and oblique views of the third digit of the left hand. COMPARISON: No relevant prior studies available. FINDINGS: Bones/joints: Unremarkable. No acute fracture. No dislocation. Soft tissues: Query soft tissue swelling at the level of the distal phalanx. No radiopaque foreign body. IMPRESSION: No evidence acute fracture or dislocation. Query soft tissue swelling at the level of the distal phalanx
[2020-07-02 03:35] VITALS: BP 116/82; PULSE 67; RESP 20
== END 2020-07-02 03:35 | disposition home or self-care (01) ==
LOC: EC 02:15
DX: S60.032A Contusion of left middle finger without damage to nail, initial encounter (principal); J45.909 Unspecified asthma, uncomplicated; W20.8XXA Other cause of strike by thrown, projected or falling object, initial encounter; Z90.710 Acquired absence of both cervix and uterus
CPT/HCPCS: 73140; 99283; 96372; J1885

== ENCOUNTER → 2021-04-19 | Outpatient (CLI) | payer BC, OTHER ==
[2021-04-19 15:27] VITALS: BP 111/76; PULSE 61; RESP 16; TEMP 98.3
--- NOTE | 2021-04-19 16:20 | P.HPOB ---
History of Present Illness H&P Date: 04/19/21 Chief Complaint: The patient is here for her routine gynecologic exam and ma mmogram. This is a 55-year-old 014 with an LMP of 1999. The patient is status post PETRA for benign reasons. She previously was having some issues with ovarian cyst pains, but this seems to have resolved. She denies any significant hot flashes. She has been experiencing more problems with urinary leakage with coughing, sneezing, jumping, or lifting. This seems to happen more frequently than in the past. She denies any urge incontinence. Review of Systems The patient has gained 10 pounds over the last year. She denies respiratory, cardiac, or G.I. problems. : Stress urinary incontinence symptoms as in the HPI. Past Medical History Past Medical History: Asthma, Supraventricular Tachycardia (SVT) Additional Past Medical History / Comment(s): back pain WHICH STARTED IN 2009. HX. HEART ARRYTHMIA (TACHY). Ulcerative colitis and [id number]-qemd controlled. 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 History of endometriosis. History of Any Multi-Drug Resistant Organisms: None Reported Past Surgical History: Back Surgery, Breast Surgery, Cardiac Ablation, Section, Hysterectomy, Orthopedic Surgery Additional Past Surgical History / Comment(s): R KNEE ARTHROSCOPY. LUMBAR, 401, CERVICAL 2014. PETRA 1999.Colonoscopy 2017(2nd). Bilateral silicone breast implants 1999. 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 - Past Family History Father Family Medical History: No Reported History Mother Family Medical History: No Reported History Additional Family Medical History / Comment(s): Colon cancer. Osteoporosis. Endometriosis. Brother(s) Additional Family Medical History / Comment(s): Ulcerative colitis. Sister(s) Additional Family Medical History / Comment(s): Ulcerative colitis. Medications and Allergies Home Medications Medication Instructions Recorded Confirmed Type Verapamil HCl 40 mg PO BID #180 tab 07/23/19 04/19/21 Rx Naltrexone HCl/Bupropion HCl 1 tab PO DAILY 12/09/19 04/19/21 History [Contrave ER 8-90 mg Tablet] Flecainide [Tambocor] 25 mg PO BID 03/03/20 04/19/21 History Allergies Allergy/AdvReac Type Severity Reaction Status Date / Time hepatitis B virus vaccine Allergy Rash/Hives Verified 04/19/21 15:23 [Hepatitis B Virus Vaccine] adhesive AdvReac skin turns Verified 04/19/21 15:23 red Exam Vital Signs Temp Pulse Resp BP Pulse Ox 04/19/21 15:24 98.3 F 61 16 111/76 95 Intake and Output 04/19/21 04/19/21 04/19/21 06:59 14:59 22:59 Other: Weight 73.936 kg Height 5 feet 2 inches, weight 163 pounds, BMI 29.8. This is a well-developed well-nourished white female who is alert and oriented times 3 in no acute distress. HEENT: Within normal limits. NECK: Supple without mass or thyromegaly. CHEST AND LUNGS: Clear to auscultation. HEART: Regular rate and rhythm. BREASTS: Are without mass or discharge. Breasts are consistent with bilateral implants. AXILLARY EXAM: Negative for adenopathy. BACK: Negative for CVA tenderness. ABDOMEN: Soft, nontender, without palpable masses. PELVIC EXAM: External genitalia appears normal. Vagina appears normal. There is no evidence of prolapse. Bimanual examination is negative for mass or tenderness. There is a small amount of urethral mobility with cough and Valsal va. No urinary leakage was demonstrated. RECTAL EXAM: Rectovaginal exam is negative for mass or tenderness and is negative for occult blood. EXTREMITIES: Nontender. IMPRESSION: 1. 55-year-old perimenopausal female who is status post PETRA for benign reasons, with normal gynecologic exam. 2. Mild stress urinary incontinence with no significant physical findings on exam today. 3. History of osteopenia per the patient. PLAN: 1. Pap smears have been discontinued. 2. Self breast awareness was discussed with the patient. We have also discussed symptoms associated with inflammatory breast cancer. 3. Screening mammogram will be done today. 4. Osteoporosis prevention was discussed. I have stressed the importance of adequate calcium, vitamin D and regular exercise. Recommended amounts of c alcium and vitamin D were also discussed. We will plan on repeating bone density testing in next year. 5. We have had a long discussion regarding stress urinary incontinence. I have stressed the importance of emptying the bladder as completely as possible when she does void, ketal exercises and timed voids. Other suggestions were given. If symptoms are not improving I have discussed the option of referral to a gynecologic urologist. I recommended that she call if she would like to proceed with a referral. 6. She was advised to return in one year for her annual well woman exam and as needed.
== END ==
LOC: WWCWWP 14:49
PROVIDERS: ATTEND Obstetrics & Gynecology
DX: Z12.31 Encounter for screening mammogram for malignant neoplasm of breast (principal); N39.3 Stress incontinence (female) (male); Z87.39 Personal history of other diseases of the musculoskeletal system and connective tissue; J45.909 Unspecified asthma, uncomplicated; Z88.7 Allergy status to serum and vaccine; Z91.048 Other nonmedicinal substance allergy status
CPT/HCPCS: 77063; 77067

== ENCOUNTER → 2022-02-16 | Outpatient (CLI) | payer BC, OTHER ==
--- NOTE | 2022-02-16 12:49 | US ---
EXAMINATION TYPE: US abdomen comp/pelvis limited DATE OF EXAM: 02/16/2022 COMPARISON: NONE CLINICAL HISTORY: R10.30 ABD PAIN. hematuria, lower abdominal pressure EXAM MEASUREMENTS: Liver Length: 13.9 cm Gallbladder Wall: 0.2 cm CBD: 0.4 cm Spleen: 7.7cm Right Kidney: 10.3 x 5.6 x 4.8 cm Left Kidney: 10.9 x 4.8 x 4.9 cm Pancreas: Tail obscured by bowel gas Liver: wnl Gallbladder: non-mobile hyperechoic areas noted, probable polyps CBD: visualized portion appears wnl Spleen: wnl Right Kidney: No evidence of hydronephrosis Left Kidney: No evidence of hydronephrosis Upper IVC: wnl Abd Aorta: wnl Bladder: wnl Bilateral Jets Seen yes IMPRESSION: 1. Clinical consideration for gallbladder polyps.
[2022-02-16 18:34] LABS: Basophils # (A) 0.07 X 10*3/uL (0.00-0.10); Basophils % (A) 1.1 %; Eosinophils # (A) 0.27 X 10*3/uL (0.04-0.35); Eosinophils % (A) 4.2 %; HGB 13.5 g/dL (12.0-15.0); Immature Grans, Automated 0.2 %; Lymphocytes # (A) 2.37 X 10*3/uL (0.90-5.00); Lymphocytes % (A) 36.5 %; MCH 33.1 pg (27.0-32.0); MCHC 32.9 g/dL (32.0-37.0); MCV 100.5 fL (80.0-97.0); Mean Platelet Volume 9.4 fL (9.5-12.2); Monocytes # (A) 0.51 X 10*3/uL (0.20-1.00); Monocytes % (A) 7.8 %; NRBC Per 100 WBC 0 /100 WBCS (0.0-0.0); Neutrophils # (A) 3.27 X 10*3/uL (1.80-7.70); Neutrophils % (A) 50.2 %; Platelet Count 307 X 10*3/uL (140-440); RBC 4.08 X 10*6/uL (4.10-5.20)
[2022-02-16 18:48] LABS: African American GFR (CKD) 116.9 (60.0-200.0); Albumin 4.5 g/dL (3.8-4.9); Albumin/Globulin Ratio 1.86 (1.60-3.17); Anion Gap 7.9 mmol/L (10.00-18.00); BUN/Creat Ratio 20.9 Ratio (12.00-20.00); Blood Urea Nitrogen 13.5 mg/dL (9.0-27.0); Calcium 10.1 mg/dL (8.7-10.3); Carbon Dioxide 28.8 mmol/L (20.0-27.5); Globulin 2.4 g/dL (1.6-3.3); Non-African American GFR(CKD) 100.9 (60.0-200.0); Potassium 5.1 mmol/L (3.5-5.5); Total Bilirubin 0.5 mg/dL (0.30-1.20); Total Protein 6.9 g/dL (6.2-8.2)
== END | disposition home or self-care (01) ==
LOC: RADUSWWP 10:14
PROVIDERS: ATTEND Family Medicine
DX: K82.8 Other specified diseases of gallbladder (principal); R10.30 Lower abdominal pain, unspecified
CPT/HCPCS: 76700; 76857; 80053; 85025

== ENCOUNTER → 2022-06-07 | Outpatient (CLI) | payer BC, OTHER ==
[2022-06-07 09:12] VITALS: BP 113/71; PULSE 74; RESP 17; TEMP 97.5
--- NOTE | 2022-06-07 10:21 | P.HPOB ---
History of Present Illness H&P Date: 06/07/22 Chief Complaint: The patient is here for her routine gynecologic exam and ma mmogram. This is a 56-year-old 014 with an LMP of 1999. The patient is status post PETRA for benign reasons. She denies any significant problems with hot flashes. She continues to have problems with urinary leakage with coughing, sneezing, jumping, or lifting. This leakage is despite doing ketal exercises and timed voids. She denies any significant urge incontinence symptoms. She is otherwise without gynecologic complaints. Review of Systems The patient has lost 23 pounds over the last year. She denies respiratory, cardiac, or G.I. problems. : Stress urinary incontinence as in the HPI. Past Medical History Past Medical History: Asthma, Supraventricular Tachycardia (SVT) Additional Past Medical History / Comment(s): back pain WHICH STARTED IN 2009. HX. HEART ARRYTHMIA (TACHY). Jue-immcfzjh-jgar controlled. Diverticulosis. 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 History of endometriosis. History of Any Multi-Drug Resistant Organisms: None Reported Past Surgical History: Back Surgery, Breast Surgery, Cardiac Ablation, Section, Hysterectomy, Orthopedic Surgery Additional Past Surgical History / Comment(s): R KNEE ARTHROSCOPY. LUMBAR, 4013, CERVICAL 2014. PETRA 1999.Colonoscopy 2021(next after 3yr). Bilateral silicone breast implants 1999. 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 - Past Family History Father Family Medical History: No Reported History Mother Family Medical History: No Reported History Additional Family Medical History / Comment(s): Colon cancer. Osteoporosis. Endometriosis. Brother(s) Additional Family Medical History / Comment(s): Ulcerative colitis. Sister(s) Additional Family Medical History / Comment(s): Ulcerative colitis. Medications and Allergies Home Medications Medication Instructions Recorded Confirmed Type No Known Home Medications 06/07/22 06/07/22 History Allergies Allergy/AdvReac Type Severity Reaction Status Date / Time hepatitis B virus vaccine Allergy Rash/Hives Verified 06/07/22 09:07 [Hepatitis B Virus Vaccine] adhesive AdvReac skin turns Verified 06/07/22 09:07 red Exam Vital Signs Temp Pulse Resp BP Pulse Ox 06/07/22 09:09 97.5 F L 74 17 113/71 99 Intake and Output 06/06/22 06/07/22 06/07/22 22:59 06:59 14:59 Other: Weight 63.503 kg Height 5 feet 2 inches, weight 140 pounds, BMI 25.6. This is a well-developed well-nourished white female who is alert and oriented times 3 in no acute distress. HEENT: Within normal limits. NECK: Supple without mass or thyromegaly. CHEST AND LUNGS: Clear to auscultation. HEART: Regular rate and rhythm. BREASTS: Are without mass or discharge. Breasts are consistent with bilateral implants. AXILLARY EXAM: Negative for adenopathy. BACK: Negative for CVA tenderness. ABDOMEN: Soft, nontender, without palpable masses. PELVIC EXAM: External genitalia appears normal with minimal atrophy. Vagina appears normal with minimal atrophy. There is no evidence of prolapse at rest. With cough and Valsalva there is moderate urethral mobility. Urinary leakage was not demonstrated. Bimanual examination is negative for mass or tenderness. RECTAL EXAM: Rectovaginal exam is negative for mass or tenderness and is negative for occult blood. EXTREMITIES: Nontender. IMPRESSION: 1. 56-year-old menopausal female status post PETRA for benign reasons with normal gynecologic exam at rest. 2. Stress urinary incontinence with urethral hypermobility, not significantly improved with ketal exercises and timed voids. 3. History of osteopenia per the patient. Her last bone density test was done more than 10 years ago. PLAN: 1. Pap smears have been discontinued. 2. Self breast awareness was discussed with the patient. We have also discussed symptoms associated with inflammatory breast cancer. 3. Screening mammogram will be done today. 4. We have discussed her stress urinary incontinence. She would like a referral to a gynecologic urologist. She will be referred to Dr. Thien Renteria for evaluation and treatment. 5. Osteoporosis prevention was discussed. I have stressed the importance of adequate calcium, vitamin D and regular exercise. Recommended amounts of calcium and vitamin D were also discussed. Bone density test will be done t jennifer. 6. She was advised to return in one year for her annual well woman exam.
--- NOTE | 2022-06-07 11:51 | MM ---
Reason for Exam: Hx of breast augmentation, asymptomatic. Last mammogram was performed 1 year(s) and 1 month(s) ago. Patient History: Menarche at age 13. First Full-Term at age 24. Hysterectomy at age 36. Postmenopausal. Patient has history of breast feeding. Patient used Hormonal Contraceptives for 2 years. 1998, Bilateral Implants. Risk Values: Miguelina 5 year model risk: 1.1%. NCI Lifetime model risk: 8.2%. Prior Study Comparison: 03/03/2016 Bilateral Screening Mammogram, [facility]. 01/01/2019 Bilateral Diagnostic Mammogram, [facility]. 03/04/2020 Bilateral Screening Mammogram, [facility]. 04/19/2021 Bilateral Screening Mammogram, [facility]. Tissue Density: The breast tissue is heterogeneously dense. This may lower the sensitivity of mammography. Findings: Analyzed By CAD. There is no suspicious group of microcalcifications or new suspicious mass in either breast. Bilateral subpectoral implants redemonstrated. Benign-appearing round calcifications within both breasts. Stable focal asymmetry superior right breast at 12:00. Overall Assessment: Benign, BI-RAD 2 Management: Screening Mammogram of both breasts in 1 year. A clinical breast exam by your physician is recommended on an annual basis and results should be correlated with mammographic findings. Electronically signed and approved by: Carloz Martell D.O.
--- NOTE | 2022-06-07 12:18 | BD ---
EXAMINATION TYPE: Axial Bone Density DATE OF EXAM: 06/07/2022 CLINICAL HISTORY: 56 years old Female. ICD-10 CODE: Z78.0 POST MENOPAUSAL STATUS Height: 5 ft 2 in Weight: 140 FRAX RISK QUESTIONS: Alcohol (3 or more units per day): no Family History (Parent hip fracture): no Glucocorticoids (More than 3mos): yes (Ex: prednisone, prednisolone, methylprednisolone, dexamethasone, and hydrocortisone). History of Fracture in Adulthood: yes Secondary Osteoporosis: 1. Type 1 Diabetes: no 2. Hyperthyroidism: no 3. Menopause before 45: no 4. Malnutrition: no 5. Chronic liver disease: no Rheumatoid Arthritis: no Current Tobacco Use: no RISK FACTORS HISTORY OF: Surgery to Spine/Hip(right/left)/Wrist (right/left): lumbars surg When: 2013 Family History of Osteoporosis: yes Active: yes Diet low in dairy products/other sources of calcium: no Postmenopausal woman: yes Take estrogen and/or progesterone medications: no Lost more than 2 inches in height since high school: no Frequent falls: yes Poor Health: good Hyperparathyroidism: no Adrenal Insufficiency: no MEDICATIONS: Additional Medications: none Additional History: EXAM MEASUREMENTS: Bone mineral density about the R hip (g/cm2): 0.841 Bone mineral density about the L hip (g/cm2): 0.750 T Score values are as follows: -----R Neck: -1.4 -----L Neck: -2.1 -----R Total: -1.1 -----L Total: -1.7 Z Score values are as follows: -----R Neck: -0.4 -----L Neck: -1.0 -----R Total: -0.4 -----L Total: -1.0 Bone mineral density has: decreased -8.1 % since study of: 2004 Bone mineral density about the L Wrist (g/cm2): 0.684 T Score values are as follows: -----Dist. R+U: -1.1 -----Prox. R+U: 0.2 -----Radius total: 0.3 Z Score values are as follows: -----Dist. R+U: -0.7 -----Prox. R+U: 0.6 -----Radius total: 0.8 baseline for wrist FRAX%s: The graph provided illustrates a 14.3% chance for a major osteoporotic fx and a 2.1 % chance for the hips probability for fx in 10 years time. IMPRESSION: Osteopenia (T Score between -2.5 and -1). There is slightly increased risk of fracture and the patient may be considered for treatment. Re-Screen 2-5 years. NOTE: T-SCORE=SD OF THE YOUNG ADULT MEAN.
--- NOTE | 2022-06-07 13:02 | P.PN ---
Progress Note - Text Progress Note Date: 06/07/22 OUTPATIENT FOLLOW-UP NOTE TEST(S)/RESULTS: Test results from 06/07/2022 include benign mammogram and bone density testing showing osteopenia. METHOD OF NOTIFICATION: The patient was notified by phone. PATIENT COMMENTS: DIAGNOSIS: Benign mammogram and osteopenia. DISCUSSION: She had a previous bone density test many years ago which showed osteopenia. That test result is not available to compare. I stressed the importance of adequate calcium, vitamin D, and regular exercise. We will plan repeating the bone density test in approximately 3 years. PLAN: As above. She was advised to return in one year for her annual well woman exam.
== END ==
LOC: WWCWWP 08:57
PROVIDERS: ATTEND Obstetrics & Gynecology
DX: Z12.31 Encounter for screening mammogram for malignant neoplasm of breast (principal); Z01.419 Encounter for gynecological examination (general) (routine) without abnormal findings; Z88.7 Allergy status to serum and vaccine; Z91.048 Other nonmedicinal substance allergy status; J45.909 Unspecified asthma, uncomplicated; M81.8 Other osteoporosis without current pathological fracture; N36.41 Hypermobility of urethra; N39.3 Stress incontinence (female) (male); Z13.820 Encounter for screening for osteoporosis; Z78.0 Asymptomatic menopausal state; Z80.0 Family history of malignant neoplasm of digestive organs; Z82.62 Family history of osteoporosis; Z83.79 Family history of other diseases of the digestive system; Z90.710 Acquired absence of both cervix and uterus
CPT/HCPCS: 77063; 77067; 77080

== ENCOUNTER → 2022-08-30 | Outpatient (CLI) | payer BC, OTHER ==
--- NOTE | 2022-08-30 09:36 | XR ---
EXAMINATION TYPE: XR cervical spine comp DATE OF EXAM: 08/30/2022 9:20 AM INDICATION: Patient age:Female; 57 years old; Reason for study: [id number] CERVICALGIA,CDD; . COMPARISON: 08/01/2018 TECHNIQUE: The cervical spine was imaged in frontal, lateral, odontoid and bilateral oblique. FINDINGS: The osseous structures show normal alignment without evidence of an acute fracture. Minimal osteophyt e formation at the C6-C7 anteriorly. The intervertebral disk spaces are mildly narrowed at multiple l evels. Pedicles are intact. Soft tissues are within normal limits. The odontoid appears intact. Fixa tion hardware to the lower cervical spine from C4 through C6. Hardware appears stable from prior. IMPRESSION: 1. No fracture or dislocation. 2. Post surgical changes with stable hardware, hardware appears intact. 3. Mild Degenerative disc disease changes of the cervical spine.
== END | disposition home or self-care (01) ==
LOC: RADXRYALE 08:49
PROVIDERS: ATTEND Physician Assistant
DX: M50.30 Other cervical disc degeneration, unspecified cervical region (principal)
CPT/HCPCS: 72050

== ENCOUNTER → 2022-11-23 | Outpatient (CLI) | payer BC, OTHER ==
--- NOTE | 2022-11-23 19:40 | XR ---
EXAMINATION TYPE: XR lumbosacral spine min 4V DATE OF EXAM: 11/23/2022 Comparison: 06/02/2014 Clinical History: 57-year-old female [id number] VERTEBROGENIC LBP Findings: 5 lumbar type vertebral bodies. Patient status post L4-S1 posterior and interbody fusion with wide la minectomies. Hypertrophic facet arthropathy mid lumbar spine. Vertebral body heights are preserved. Impression: Status post L4-S1 posterior and interbody fusion with wide laminectomies. Hypertrophic facet arthropa thy in the mid lumbar spine above the fusion. No vertebral compression collapse or malalignment.
== END | disposition home or self-care (01) ==
LOC: RADXRYALE 15:07
PROVIDERS: ATTEND Physician Assistant
DX: M47.816 Spondylosis without myelopathy or radiculopathy, lumbar region (principal); M54.51 Vertebrogenic low back pain; Z98.1 Arthrodesis status
CPT/HCPCS: 72110

== ENCOUNTER → 2023-06-12 | Outpatient (CLI) | payer BC, OTHER ==
[2023-06-12 08:11] VITALS: BP 111/75; PULSE 88; RESP 16; TEMP 98.1
--- NOTE | 2023-06-12 09:08 | P.HPOB ---
History of Present Illness H&P Date: 06/12/23 Chief Complaint: The patient is here for her routine gynecologic exam and ma mmogram This is a 57-year-old -0-1-4 with an LMP of 1999. She is status post PETRA for benign reasons. She was seen by and was found to have mixed urinary incontinence and rectocele. She underwent a sling procedure and a rectocele repair in November 2022. She has also been seeing a GI specialist for chronic constipation and was diagnosed with colonic inertia. This is being treated medically with improvement. She states she has done much better regarding her urinary incontinence and does not have the trapped stool in the rectum like she did before. However, she has been having dyspareunia after the surgery and states it feels like her is scraping against the bladder sling mesh. She has tried some lubrication without help. Review of Systems The patient has lost 18 pounds over the last year. She denies respiratory, cardiac, or G.I. problems. She states her constipation has improved and is now having bowel movements about 1-2 times per week 10 days. Past Medical History Past Medical History: Asthma, Supraventricular Tachycardia (SVT) Additional Past Medical History / Comment(s): Chronic back pain WHICH STARTED IN 2009. HX. HEART ARRYTHMIA (TACHY). Zib-pefpliwb-ehuz controlled. Diverticulosis. Colonic inertia which caused issues with constipation. 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 History of endometriosis. History of Any Multi-Drug Resistant Organisms: None Reported Past Surgical History: Back Surgery, Breast Surgery, Cardiac Ablation, Section, Hysterectomy, Orthopedic Surgery Additional Past Surgical History / Comment(s): R KNEE ARTHROSCOPY. LUMBAR, 4013, CERVICAL 2014. PETRA 1999.Colonoscopy 2021(next after 3yr). Bilateral silicone breast implants 1999. Bladder sling procedure and rectocele repair 2022. 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 Osteoporosis. Endometriosis. Brother(s) Additional Family Medical History / Comment(s): Ulcerative colitis. Sister(s) Additional Family Medical History / Comment(s): Ulcerative colitis. Medications and Allergies Home Medications Medication Instructions Recorded Confirmed Type Prucalopride Succinate [Motegrity] 2 mg PO DAILY 06/12/23 06/12/23 History Allergies Allergy/AdvReac Type Severity Reaction Status Date / Time hepatitis B virus vaccine Allergy Rash/Hives Verified 06/07/22 09:07 [Hepatitis B Virus Vaccine] adhesive AdvReac skin turns Verified 06/07/22 09:07 red Exam Vital Signs Temp Pulse Resp BP Pulse Ox 06/12/23 08:07 98.1 F 88 16 111/75 99 Intake and Output 06/11/23 06/12/23 06/12/23 22:59 06:59 14:59 Other: Weight 55.338 kg Height 5 feet 1-1/2 inches, weight 122 pounds, BMI 22.7 This is a well-developed well-nourished white female who is alert and oriented times 3 in no acute distress. HEENT: Within normal limits. NECK: Supple without mass or thyromegaly. CHEST AND LUNGS: Clear to auscultation. HEART: Regular rate and rhythm. BREASTS: Are without mass or discharge. Breasts are consistent with bilateral implants. AXILLARY EXAM: Negative for adenopathy. BACK: Negative for CVA tenderness. ABDOMEN: Soft, nontender, without palpable masses. PELVIC EXAM: External genitalia appears normal mild atrophy. Vagina appears normal with intact mucosa and mild atrophy. The vagina is slightly shortened and seems to be narrow the outer third of the vagina consistent with her previous sling procedure and rectocele repairs. There is no evidence of prolapse. Bimanual examination is negative for mass or tenderness. RECTAL EXAM: Rectovaginal exam is negative for mass or tenderness and is negative for occult blood. EXTREMITIES: Nontender. IMPRESSION: 1. 57-year-old menopausal female status post PETRA for benign reasons and bladder sling procedure with rectocele repair. 2. Dyspareunia probably secondary to atrophy and narrowing of the outer third of the vagina which is related to her sling procedure and rectocele repairs. 3. History of osteopenia PLAN: 1. Pap smears have been discontinued. 2. Self breast awareness was discussed with the patient. We have also discussed symptoms associated with inflammatory breast cancer. 3. Screening mammogram will be done today. 4. We have had a long discussion regarding the dyspareunia and vaginal narrowing. I have recommended relaxation techniques to try to relax the perivaginal muscles with intercourse. She will use this in addition to extra lubrication and slow entry. I have also recommended using estrogen vaginal cream. Sample tube of Premarin vaginal cream was given to the patient and the electronic prescription will be sent to [facility] pharmacy in [place]. She wi ll insert 1 g into the vagina every other day for 2 weeks then 1 g 2 times weekly. 5. Osteoporosis prevention was discussed. Bone density testing will be repeated in approximately 2 years. 6. She was advised to return in one year for her annual well woman exam and as needed.
--- NOTE | 2023-06-13 21:45 | MM ---
Reason for Exam: Screening (asymptomatic). Last screening mammogram was performed 12 month(s) ago. Patient History: Menarche at age 13. First Full-Term at age 24. Hysterectomy at age 36. Postmenopausal. Patient has history of breast feeding. Patient used Hormonal Contraceptives for 2 years. 1997, Bilateral Implants. Risk Values: Miguelina 5 year model risk: 1.2%. NCI Lifetime model risk: 8.1%. Prior Study Comparison: 03/04/2020 Bilateral Screening Mammogram, [facility]. 04/19/2021 Bilateral Screening Mammogram, [facility]. 06/07/2022 Bilateral MG 3D screen mammo imp/cad., [facility]. Tissue Density: The breasts are heterogeneously dense, which may obscure small masses. Findings: Analyzed By CAD. Bilateral retropectoral saline implants are present. Inferior subareolar asymmetric density on the right MLO view appears more defined. This may represent superimposition shadow but further evaluation is recommended. Otherwise, no significant change. Overall Assessment: Incomplete: need additional imaging evaluation, BI-RAD 0 Management: Special View Mammogram of the right breast. To include spot 3-D MLO and 3-D lateral views. [facility] will attempt to contact patient to return for supplemental views and ultrasound if indicated. Electronically signed and approved by: Martinez Garcia M.D. Radiologist
== END ==
LOC: WWCWWP 07:48
PROVIDERS: ATTEND Obstetrics & Gynecology
DX: Z12.31 Encounter for screening mammogram for malignant neoplasm of breast (principal); N94.10 Unspecified dyspareunia; M85.80 Other specified disorders of bone density and structure, unspecified site; Z78.0 Asymptomatic menopausal state; Z88.7 Allergy status to serum and vaccine; Z91.048 Other nonmedicinal substance allergy status
CPT/HCPCS: 77063; 77067

== ENCOUNTER → 2023-06-15 | Outpatient (CLI) | payer BC, OTHER ==
--- NOTE | 2023-06-18 10:32 | MM ---
Reason for Exam: Additional evaluation requested from abnormal screening. Last screening mammogram was performed less than 1 month ago. Patient History: Menarche at age 13. First Full-Term at age 24. Hysterectomy at age 36. Postmenopausal. Patient has history of breast feeding. Patient used Hormonal Contraceptives for 2 years. 1997, Bilateral Implants. Risk Values: Miguelina 5 year model risk: 1.2%. NCI Lifetime model risk: 8.1%. Prior Study Comparison: 04/19/2021 Bilateral Screening Mammogram, [facility]. 06/07/2022 Bilateral MG 3D screen mammo imp/cad., [facility]. 06/12/2023 Bilateral MG 3D screen mammo imp/cad., [facility]. Tissue Density: Right: The breasts are heterogeneously dense, which may obscure small masses. Findings: Analyzed By CAD. Bilateral breast implants appear intact. Focal asymmetry right breast anterior depth on RMLOID view approximately 18 mm from the nipple. This may been present dating back to 2021. Overall Assessment: Probably benign, BI-RAD 3 Management: Diagnostic Mammogram of the right breast in 6 months. Results were given to the patient verbally at the time of exam. Patient should continue monthly self-breast exams. A clinical breast exam by your physician is recommended on an annual basis. This exam should not preclude additional follow-up of suspicious palpable abnormalities. Note on Miguelina scores and lifetime risk: 1. A Miguelina score greater than 3% is considered moderate risk. If this is the case, consider specialist referral to assess eligibility for a risk reducing agent. 2. If overall lifetime risk for the development of breast cancer is 20% or higher, the patient may qualify for future screening with alternating mammogram and breast MRI. Electronically signed and approved by: Ilya Figueroa DO
--- NOTE | 2023-06-19 12:26 | P.PN ---
Progress Note - Text Progress Note Date: 06/19/23 OUTPATIENT FOLLOW-UP NOTE TEST(S)/RESULTS: Mammogram done on 06/12/2023 required a right breast workup which was done on 06/15/2023. The result was probably benign and a 6-month diagnostic right breast mammogram was recommended. METHOD OF NOTIFICATION: Patient was notified by the radiology department at the time of the workup. PATIENT COMMENTS: DIAGNOSIS: Probably benign mammogram with right to workup. DISCUSSION: PLAN: The order slip for a diagnostic right mammogram to be done in 6 months w ill be mailed to the patient.
== END | disposition home or self-care (01) ==
LOC: RADMAMWWP 13:52
PROVIDERS: ATTEND Obstetrics & Gynecology
DX: R92.8 Other abnormal and inconclusive findings on diagnostic imaging of breast (principal); R92.331 Mammographic heterogeneous density, right breast; Z78.0 Asymptomatic menopausal state; Z92.0 Personal history of contraception
CPT/HCPCS: 77061; 77065

== ENCOUNTER 2023-07-04 18:29 | Emergency (ER) | payer BC, OTHER ==
[2023-07-04 19:18] VITALS: BP 138/86; PULSE 73; RESP 20; TEMP 97.9
--- NOTE | 2023-07-04 19:35 | ED ---
Dizziness HPI - General Chief Complaint: Dizziness Stated Complaint: head injury Time Seen by Provider: 07/04/23 19:11 Source: EMS, RN notes reviewed Mode of arrival: EMS Limitations: no limitations - History of Present Illness Initial Comments: 57-year-old female not on blood thinners or baby aspirin presenting to the ED status post head injury. Patient states that she was in her chicken coop kneeling down trying to grab something and when she stood up hit the top of her head on the corner of the wooden chicken coop. There was no LOC at this time. Secondary to this, notes she had severe pain causing her to lie on the ground for 10 to 15 minutes until she could stand up. Following this, development of headache which she currently describes as 8-10 out of 10 in severity. Also notes developed dizziness which she describes as feeling off balance and "being on the boat" with some nausea and photophobia. No other injuries at this time. No other complaints. - Related Data Home Medications Medication Instructions Recorded Confirmed Prucalopride Succinate [Motegrity] 2 mg PO DAILY 06/12/23 06/12/23 Previous Rx's Medication Instructions Recorded Estrogens, Conjugated Cream 1 gram VAGINAL DIRECTED #30 gm 06/12/23 [Premarin Vaginal Cream] Allergies Allergy/AdvReac Type Severity Reaction Status Date / Time hepatitis B virus vaccine Allergy Rash/Hives Verified 07/04/23 18:41 [Hepatitis B Virus Vaccine] adhesive AdvReac skin turns Verified 07/04/23 18:41 red Review of Systems ROS Statement: Those systems with pertinent positive or pertinent negative responses have been documented in the HPI. ROS Other: All systems not noted in ROS Statement are negative. Past Medical History Past Medical History: Asthma, Supraventricular Tachycardia (SVT) Additional Past Medical History / Comment(s): Chronic back pain WHICH STARTED IN 2009. HX. HEART ARRYTHMIA (TACHY). Jio-xzuwdihr-mjhy controlled. Diverticulosis. Colonic inertia which caused issues with constipation. 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 History of endometriosis. History of Any Multi-Drug Resistant Organisms: None Reported Past Surgical History: Back Surgery, Breast Surgery, Cardiac Ablation, Section, Hysterectomy, Orthopedic Surgery Additional Past Surgical History / Comment(s): R KNEE ARTHROSCOPY. LUMBAR, 4013, CERVICAL 2014. PETRA 1999.Colonoscopy 2022(next after 3yr). Bilateral silicone breast implants 1999. Bladder sling procedure and rectocele repair 2022. Past Anesthesia/Blood Transfusion Reactions: No Reported Reaction Past Psychological History: No Psychological Hx Reported Smoking Status: Never smoker Past Alcohol Use History: Occasional Past Drug Use History: None Reported - Past Family History Father Family Medical History: No Reported History Mother Family Medical History: No Reported History Additional Family Medical History / Comment(s): Colon cancer. Osteoporosis. Endometriosis. Brother(s) Additional Family Medical History / Comment(s): Ulcerative colitis. Sister(s) Additional Family Medical History / Comment(s): Ulcerative colitis. General Exam Limitations: no limitations General appearance: alert, in no apparent distress Head exam: Present: atraumatic, normocephalic, other (No maddox signs or raccoon's eyes. No obvious evidence of head injury.) Eye exam: Present: normal appearance, PERRL, EOMI ENT exam: Present: mucous membranes moist Neck exam: Present: normal inspection Respiratory exam: Present: normal lung sounds bilaterally Cardiovascular Exam: Present: regular rate, normal rhythm GI/Abdominal exam: Present: soft, normal bowel sounds. Absent: distended, tenderness, guarding, rebound, rigid Extremities exam: Present: normal inspection Back exam: Present: other (No midline spinal tenderness to palpation.) Neurological exam: Present: alert, oriented X3, CN II-XII intact Skin exam: Present: warm, dry Course Vital Signs 07/04/23 18:34 Temperature 97.9 F Pulse Rate 73 Respiratory 20 Rate Blood Pressure 138/86 O2 Sat by Pulse 96 Oximetry Medical Decision Making - Medical Decision Making Was pt. sent in by a medical professional or institution (, PA, REMELT OPERATOR, urgent care, hospital, or residential...) When possible be specific @ -No Did you speak to anyone other than the patient for history (EMS, parent, family, police, friend...)? What history was obtained from this source @ -No Did you review nursing and triage notes (agree or disagree)? Why? @ -I reviewed and agree with nursing and triage notes Were old charts reviewed (outside hosp., previous admission, EMS record, old EKG, old radiological studies, urgent care reports/EKG's, residential records)? Report findings @ -No old charts were reviewed Differential Diagnosis (chest pain, altered mental status, abdominal pain women, abdominal pain men, vaginal bleeding, weakness, fever, dyspnea, syncope, headache, dizziness, GI bleed, back pain, seizure, CVA, palpatations, mental health, musculoskeletal)? @ -Differential Headache: Migraine, tension, cluster, carbon monoxide, central venous thrombosis, pension karma temporal arteritis, acute closure glaucoma, intercranial hemorrhage, mastoiditis, sinusitis, head injury, this is not meant to be an all-inclusive list. EKG interpreted by me (3pts min.). @ -None X-rays interpreted by me (1pt min.). @ -None done CT interpreted by me (1pt min.). @ -CT brain interpreted me which revealed no evidence of acute finding. U/S interpreted by me (1pt. min.). @ -None done What testing was considered but not performed or refused? (CT, X-rays, U/S, labs)? Why? @ -None What meds were considered but not given or refused? Why? @ -None Did you discuss the management of the patient with other professionals (professionals i.e. , PA, REMELT OPERATOR, lab, RT, psych nurse, high school social science teacher, performance improvement coordinator, teacher, protocol officer, porter sample case)? Give summary @ -No Was smoking cessation discussed for >3mins.? @ -No Was critical care preformed (if so, how long)? @ -No Were there social determinants of health that impacted care today? How? (Homelessness, low income, unemployed, alcoholism, drug addiction, transportation, low edu. Level, literacy, decrease access to med. care, correction, rehab)? @ -No Was there de-escalation of care discussed even if they declined (Discuss DNR or withdrawal of care, Hospice)? DNR status @ -No What co-morbidities impacted this encounter? (DM, HTN, Smoking, COPD, CAD, Cancer, CVA, ARF, Chemo, Hep., AIDS, mental health diagnosis, sleep apnea, morbid obesity)? @ -None Was patient admitted / discharged? Hospital course, mention meds given and route, prescriptions, significant lab abnormalities, going to OR and other pertinent info. @ -Discharge 57-year-old female presenting to the ED with complaints of headache, dizziness, nausea, photophobia after standing up and hitting the top of her head on the chicken coop. No other injuries occurred at this time. CT brain was performed due to patient stating severe headache. CT brain reviewed which revealed no evidence of acute finding. Discharged home in stable condition. Undiagnosed new problem with uncertain prognosis? @ -No Drug Therapy requiring intensive monitoring for toxicity (Heparin, Nitro, Insulin, Cardizem)? @ -No Were any procedures done? @ -No Diagnosis/symptom? @ -Head injury, concussion Acute, or Chronic, or Acute on Chronic? @ -Acute Uncomplicated (without systemic symptoms) or Complicated (systemic symptoms)? @ -Uncomplicated Side effects of treatment? @ -No Exacerbation, Progression, or Severe Exacerbation? @ -No Poses a threat to life or bodily function? How? (Chest pain, USA, NH, pneumonia, PE, COPD, DKA, ARF, appy, cholecystitis, CVA, Diverticulitis, Homicidal, Suicidal, threat to staff... and all critical care pts) @ -No Disposition Clinical Impression: Head injury, Concussion Disposition: HOME SELF-CARE Condition: Good Instructions (If sedation given, give patient instructions): Concussion (ED) Additional Instructions: Please return to the Emergency Department if symptoms worsen or any other concerns. Please follow-up with your primary care provider. Is patient prescribed a controlled substance at d/c from ED?: No Referrals: Amado Price DO [Primary Care Provider] - 1-2 days Time of Disposition: 20:55
[2023-07-04] MEDS: ACETAMINOPHEN TAB 500 MG TAB PO STA (19:38)
--- NOTE | 2023-07-04 20:08 | CT ---
EXAMINATION TYPE: CT brain wo con CT DLP: 1099.4 mGycm, Automated exposure control for dose reduction was used. DATE OF EXAM: 07/04/2023 8:00 PM COMPARISON: None. CLINICAL INDICATION:Female, 57 years old with history of s/p head injury., Hit superior-frontal skull on chicken coup, headache. No thinners, No LOC TECHNIQUE: Brain: Axial CT images of the brain were obtained with coronal and sagittal reformats created and rev iewed. Contrast used: None. Oral contrast used: None. FINDINGS: Brain: Extra-axial spaces: No abnormal extra-axial fluid collections. Ventricular system: Within normal limits Cerebral parenchyma: No acute intraparenchymal hemorrhage or mass effect. The cuevas-white junction is well differentiated. Cerebellum: Unremarkable. Mass effect: No evidence of midline shift. Intracranial vasculature: unremarkable Soft tissues: Mild soft tissue edema overlying the superior frontal region. Calvarium/osseous structures: No depressed skull fracture. Paranasal sinuses and mastoid air cells: Left sphenoid sinus disease. Visualized orbits: Orbital contents are intact. IMPRESSION: 1. No acute intracranial process. 2. Mild frontal soft tissue edema.
== END 2023-07-04 21:18 | disposition home or self-care (01) ==
LOC: EC 18:29
DX: S06.0X0A Concussion without loss of consciousness, initial encounter (principal); R40.2410 Glasgow coma scale score 13-15, unspecified time; Z88.7 Allergy status to serum and vaccine; Z88.8 Allergy status to other drugs, medicaments and biological substances; X58.XXXA Exposure to other specified factors, initial encounter
CPT/HCPCS: 70450; 99285

== ENCOUNTER → 2023-12-19 | Outpatient (CLI) | payer BC, OTHER ==
--- NOTE | 2023-12-19 07:44 | MM ---
Reason for Exam: Follow-up at short interval from prior study. Last screening mammogram was performed 6 month(s) ago. Patient History: Menarche at age 13. First Full-Term at age 24. Hysterectomy at age 36. Postmenopausal. Patient has history of breast feeding. Patient used Hormonal Contraceptives for 2 years. 1998, Bilateral Implants. Risk Values: Miguelina 5 year model risk: 1.2%. NCI Lifetime model risk: 7.9%. Prior Study Comparison: 06/07/2022 Bilateral MG 3D screen mammo imp/cad., [facility]. 06/12/2023 Bilateral MG 3D screen mammo imp/cad., [facility]. 06/15/2023 Right MG 3D work up w/cad w/imp RT, [facility]. Tissue Density: Right: The breasts are heterogeneously dense, which may obscure small masses. Findings: Analyzed By CAD. Retropectoral saline implant. Inferior subareolar asymmetric density has increased but this may be explained by the greater degree of compression used presently. Further ultrasound evaluation recommended. Large rounded global asymmetry centrally on the CC view is unchanged. Overall Assessment: Incomplete: need additional imaging evaluation, BI-RAD 0 Management: Diagnostic Breast Ultrasound of the right breast. [facility], , 12/19/2023 7:41 AM. Electronically signed and approved by: Martinez Garcia M.D. Radiologist
--- NOTE | 2023-12-19 08:11 | USB ---
Reason for Exam: Additional evaluation requested from abnormal screening. Patient History: Menarche at age 13. First Full-Term at age 24. Hysterectomy at age 36. Postmenopausal. Patient has history of breast feeding. Patient used Hormonal Contraceptives for 2 years. 1997, Bilateral Implants. Risk Values: Miguelina 5 year model risk: 1.2%. NCI Lifetime model risk: 7.9%. Technique: Method: Targeted. Prior Study Comparison: 06/07/2022 Bilateral MG 3D screen mammo imp/cad., [facility]. 06/12/2023 Bilateral MG 3D screen mammo imp/cad., [facility]. 06/15/2023 Right MG 3D work up w/cad w/imp RT, [facility]. Findings: The axilla of the right breast and the retroareolar of the right breast were scanned. Targeted ultrasound subareolar and periareolar right breast including scanning of the axilla. Mild duct ectasia is noted. Underlying breast implant also demonstrated. No solid or cystic lesion or axillary lymphadenopathy. Overall Assessment: Probably benign, BI-RAD 3 Management: Diagnostic Mammogram of both breasts in 6 months. Total one-year follow-up right breast and annual exam of the left breast. A clinical breast exam by your physician is recommended on an annual basis and results should be correlated with mammographic findings. This exam should not preclude additional follow-up of suspicious palpable abnormalities. Results were given to the patient verbally at the time of exam. [facility], , 12/19/2023 8:08 AM. Electronically signed and approved by: Martinez Garcia M.D. Radiologist
== END | disposition home or self-care (01) ==
LOC: RADMAMWWP 06:57
PROVIDERS: ATTEND Obstetrics & Gynecology
DX: R92.8 Other abnormal and inconclusive findings on diagnostic imaging of breast (principal); R92.333 Mammographic heterogeneous density, bilateral breasts; Z78.0 Asymptomatic menopausal state; Z98.82 Breast implant status
CPT/HCPCS: 77065; 76642; G0279; 77061

== ENCOUNTER 2023-12-31 08:39 | Day surgery (SDC) | payer BC, OTHER ==
[2023-12-31] MEDS: IV FLUID CONTINUATION 1,000 ML IV ONE ×2 (08:50→11:46)
[2023-12-31] MEDS: ACETAMINOPHEN TAB 500 MG TAB PO PRN (08:59)
[2023-12-31] MEDS: LACTATED RINGERS 1,000 ML IV SCH (09:00)
[2023-12-31] MEDS: HEPARIN SODIUM,PORCINE 5,000 UNIT/ML 1 ML VIAL SQ PRN (09:00)
[2023-12-31] MEDS: ONDANSETRON 4 MG/2 ML VIAL IVP ONE (09:00)
[2023-12-31] MEDS: DEXAMETHASONE SOD PHOSPHATE 4 MG/ML 1 ML VIAL IV ONE (09:00)
[2023-12-31 09:11] VITALS: TEMP 97.1
[2023-12-31] MEDS ORDERED: SUCCINYLCHOLINE CHLORIDE 200 MG/10 ML VIAL IV ONE (10:04)
[2023-12-31] MEDS ORDERED: NEOSTIGMINE 1 MG/ML 10 ML VIAL ONE (10:04)
[2023-12-31] MEDS ORDERED: LIDOCAINE 1% INJ 10MG/ML (20 ML MDV) ONE (10:04)
[2023-12-31] MEDS ORDERED: GLYCOPYRROLATE 0.2 MG/ML 2 ML VIAL ONE (10:04)
[2023-12-31] MEDS ORDERED: PROPOFOL 10 MG/ML 20 ML VIAL IV ONE (10:04)
[2023-12-31] MEDS ORDERED: ROCURONIUM 10 MG/ML (5 ML VIAL) IV ONE (10:04)
[2023-12-31] MEDS ORDERED: KETOROLAC 15 MG/ML 1 ML VIAL ONE (10:04)
[2023-12-31] MEDS ORDERED: PHENYLEPHRINE 10 MG/ML VIAL ONE (10:04)
[2023-12-31] MEDS ORDERED: fentaNYL (PF) 50 MCG/ML 2 ML AMP ONE (10:04)
[2023-12-31] MEDS ORDERED: MIDAZOLAM 2 MG/2 ML VIAL ONE (10:04)
[2023-12-31] MEDS: BUPIVACAINE (PF) 0.25% 30 ML VIAL SQ ONE (10:29)
--- NOTE | 2023-12-31 11:23 | P.OP ---
Date of Procedure: 12/31/23 Procedure(s) Performed: PREOPERATIVE DIAGNOSIS: Biliary dyskinesia POSTOPERATIVE DIAGNOSIS: Same PROCEDURE: Laparoscopic cholecystectomy SURGEON: Gina EBL: 10 cc ANESTHESIA: Gen. COMPLICATIONS: None OPERATIVE PROCEDURE: The patient was brought and placed on the operating room table in the supine position. The patient was placed under general anesthesia at that time. The abdomen was prepped and draped in the usual sterile fashion. A small vertical infraumbilical incision was made. The fascia was grasped with the Sulma forceps. The fascia was retracted anteriorly. The Veress needle was advanced into the peritoneal cavity. The saline drop test was normal. Insufflation took place up to 15 mmHg. A 5 mm optical trocar was advanced and the peritoneal cavity. 2 additional 5 mm trochars were placed in the right upper quadrant under direct visualization. A 12 mm trocar was advanced into the epigastric incision site. The gallbladder was retracted superiorly and laterally. The peritoneum overlying the infundibulum was bluntly dissected. The patient's cystic duct was visualized. The junction between the cystic duct common and hepatic duct was identified. The critical view of safety was achieved after blunt dissection. The cystic duct was then divided after placement of 3 12 mm clips on the patient's side and one on the specimen side. The cystic artery was identified and clipped as well. A small vessel was seen along the gallbladder fossa and clipped as well. The gallbladder was then removed from the liver bed using electrocautery. The gallbladder was then removed from the epigastric trocar site with an Endo Catch bag. The gallbladder fossa was irrigated with saline. There was no evidence of any bleeding or biliary drainage seen. The fascia at the 12 millimeter site was closed using a Larry-Catie 0 Vicryl stitch. The trochars were then removed. The skin at a ll 4 sites was closed using a 4-0 Monocryl stitch. Skin glue was utilized on the incision sites. At the end of this procedure the sponge and needle counts were correct. DISPOSITION: Stable to the recovery room
[2023-12-31] MEDS: HYDROmorphone 0.5 MG/0.5 ML SYRINGE IVP PRN (11:28)
[2023-12-31] MEDS ORDERED: ACETAMINOPHEN TAB 325 MG TAB PO SCH (12:00)
[2023-12-31 12:56] VITALS: BP 121/80; PULSE 68; RESP 16
[2023-12-31] MEDS ORDERED: IBUPROFEN 600 MG TAB PO SCH (14:30)
== END 2023-12-31 13:00 | disposition home or self-care (01) ==
LOC: OR 08:39
PROVIDERS: ATTEND Surgery
DX: K81.1 Chronic cholecystitis (principal); F10.90 Alcohol use, unspecified, uncomplicated; Z98.890 Other specified postprocedural states; Z90.710 Acquired absence of both cervix and uterus
CPT/HCPCS: 47562; 88304; J2250; J0330; J1644; J1100; J2710; J2405; J0690; J2003; J3010; J1885; J2704; J1171; J2371; J0665; J1596

== ENCOUNTER → 2024-09-12 | Outpatient (CLI) | payer BC, OTHER ==
--- NOTE | 2024-09-12 11:34 | MM ---
Reason for Exam: Clinical finding. Last mammogram was performed 1 year(s) and 3 month(s) ago. Patient History: Menarche at age 13. First Full-Term at age 24. Hysterectomy at age 36. Postmenopausal. Patient has history of breast feeding. Patient used Hormonal Contraceptives for 2 years. 1998, Bilateral Implants. Risk Values: Miguelina 5 year model risk: 1.3%. NCI Lifetime model risk: 7.7%. Prior Study Comparison: 06/07/2022 Bilateral MG 3D screen mammo imp/cad., [facility]. 06/12/2023 Bilateral MG 3D screen mammo imp/cad., [facility]. 06/15/2023 Right MG 3D work up w/cad w/imp RT, [facility]. 12/19/2023 Right US breast limited RT, [facility]. 12/19/2023 Right MG 3D diag mammo imp w/cad RT, [facility]. Tissue Density: The breasts are heterogeneously dense, which may obscure small masses. Findings: Analyzed By CAD. Bilateral breast implants appear intact. No new suspicious masses, calcifications or distortions. Overall Assessment: Benign, BI-RAD 2 Management: Screening Mammogram of both breasts in 1 year. Results were given to the patient verbally at the time of exam. Patient should continue monthly self-breast exams. A clinical breast exam by your physician is recommended on an annual basis. This exam should not preclude additional follow-up of suspicious palpable abnormalities. Note on Miguelina scores and lifetime risk: 1. A Miguelina score greater than 3% is considered moderate risk. If this is the case, consider specialist referral to assess eligibility for a risk reducing agent. 2. If overall lifetime risk for the development of breast cancer is 20% or higher, the patient may qualify for future screening with alternating mammogram and breast MRI. [facility], , 09/12/2024 11:31 AM. Electronically signed and approved by: Ilya Figueroa DO
== END | disposition home or self-care (01) ==
LOC: RADMAMWWP 10:50
PROVIDERS: ATTEND Family Medicine
DX: R92.8 Other abnormal and inconclusive findings on diagnostic imaging of breast (principal); R92.333 Mammographic heterogeneous density, bilateral breasts; Z98.82 Breast implant status; Z92.0 Personal history of contraception; Z78.0 Asymptomatic menopausal state
CPT/HCPCS: 77062; 77066